=== PATIENT | male | born 1950 | race Hispanic/Latino ===

== ENCOUNTER 2018-08-11 10:50 | Emergency (ER) | payer MEDICARE, BC ==
[2018-08-11 11:55] LABS: #Eosinphils 0.1 thou/uL (0.0-0.7); #Neutrophils 5.4 thou/uL (1.40-6.50); %Basophils 0.3 % (0.0-1.0); %Eosinophils 1.5 % (0.0-10.0); %Lymphocytes 13.1 % (21.0-51.0); %Monocytes 12.9 % (0.0-10.0); %Neutrophils 72.3 % (42.0-75.0); Hemoglobin 11.6 g/dL (14.0-18.0); Mean Corpuscular HGB CONC 32.4 g/dL (32.0-36.0); Mean Platelet Volume 6.8 fL (7.4-10.4); Platelet Count 293 thou/uL (130-400); RBC Distribution Width 12.6 % (11.5-14.5); Red Blood Cell (RBC) Count 3.51 mill/uL (4.70-6.10); White Blood Cell (WBC) Count 7.5 thou/uL (4.8-10.8)
--- NOTE | 2018-08-11 11:56 | RAD ---
FChest 2 views: 08/11/2018 COMPARISON: 04/14/2016 HISTORY: Fever, headaches, body aches FINDINGS: There is a CT injectable left-sided Port-A-Cath, distal tip overlying the region of the cav oatrial junction. Midline sternotomy wires are present. Mild diffuse increased linear interstitial de nsity noted. There is elevation of the right hemidiaphragm. There is no pneumothorax or pleural fluid and no focal consolidation or alveolar edema. Mild increased linear density is noted on laterally im aging overlying the cardiac silhouette, which could represent mild infiltrate, volume loss, or scar w ithin the lingula and/or right middle lobe. No definitive correlate seen on the frontal exam. Impression: No focal consolidation or alveolar edema. Increased linear density overlies the cardiac s ilhouette anteriorly on the lateral examination as detailed above.
[2018-08-11 11:58] LABS: ALT (SGPT) 23 U/L (8-55); AST (SGOT) 18 U/L (5-34); Albumin 3.5 g/dL (3.4-4.8); Alkaline Phosphatase 119 U/L (40-150); Anion Gap 13 mmol/L (10-20); BUN (Urea Nitrogen) 10 mg/dL (8.4-25.7); Bilirubin, Total 0.5 mg/dL (0.2-1.2); Calc. Creatinine Clearance 0 mL/min (70-130); Calcium 8.8 mg/dL (7.8-10.44); Carbon Dioxide 26 mmol/L (23-31); Chloride 97 mmol/L (98-107); Estimated GFR-MDRD 65; Globulin 3.8 g/dL (2.4-3.5); Glucose 289 mg/dL (80-115); Potassium 3.4 mmol/L (3.5-5.1); Protein, Total 7.3 g/dL (5.8-8.1); Sodium 133 mmol/L (136-145)
[2018-08-11 13:11] LABS: Bilirubin Negative (Negative); Blood, Urine Negative (Negative); Clarity CLEAR (Clear); Glucose, Urine (Dipstick) >=1000 mg/dL (Negative); Leukocyte Negative (Negative); Nitrite Negative (Negative); Protein, Urine (Dipstick) Trace mg/dL (Neg-Trace); Specific Gravity, Urine 1.028 (1.002-1.036); pH, Urine 5.5 (5.0-9.0)
[2018-08-11] MEDS ORDERED: Acetaminophen 500 MG TAB ONE (13:50)
[2018-08-11] MEDS ORDERED: cefTRIAXone\\ROCEPHIN 2 GM VIAL ONE (15:40)
[2018-08-11] MEDS ORDERED: Ibuprofen 800 MG TAB ONE (15:49)
== END 2018-08-11 16:28 | disposition home or self-care (01) ==
LOC: ERS 10:50
DX: J20.9 Acute bronchitis, unspecified (principal); E78.5 Hyperlipidemia, unspecified; I10 Essential (primary) hypertension; I25.10 Atherosclerotic heart disease of native coronary artery without angina pectoris; F32.9 Major depressive disorder, single episode, unspecified; Z79.899 Other long term (current) drug therapy
CPT/HCPCS: 36415; 71046; 80053; 81003; 84484; 85025; 87086; 87804; 93005; 96361; 96365; J0696

== ENCOUNTER 2018-08-27 14:50 | Emergency (ER) | payer MEDICARE, BC ==
[~2018-08-27 14:50] MED LIST: ISOVUE-370 76%-LOCM 1 ML ONE
[2018-08-27 15:13] LABS: #Eosinphils 0.1 thou/uL (0.0-0.7); #Lymphocytes 1.1 thou/uL (1.20-3.40); #Monocytes 0.8 thou/uL (0.11-0.59); %Basophils 0.5 % (0.0-1.0); %Eosinophils 1.7 % (0.0-10.0); %Lymphocytes 13.5 % (21.0-51.0); %Monocytes 10.1 % (0.0-10.0); %Neutrophils 74.2 % (42.0-75.0); Hemoglobin 10.6 g/dL (14.0-18.0); Mean Corpuscular HGB CONC 31.7 g/dL (32.0-36.0); Mean Corpuscular Hemoglobin 32.3 pg (27.0-31.0); Mean Platelet Volume 6.4 fL (7.4-10.4); Platelet Count 316 thou/uL (130-400); RBC Distribution Width 13.4 % (11.5-14.5); Red Blood Cell (RBC) Count 3.27 mill/uL (4.70-6.10); White Blood Cell (WBC) Count 8.1 thou/uL (4.8-10.8)
[2018-08-27 15:41] LABS: ALT (SGPT) 25 U/L (8-55); AST (SGOT) 21 U/L (5-34); Albumin 3.6 g/dL (3.4-4.8); Alkaline Phosphatase 143 U/L (40-150); Anion Gap 13 mmol/L (10-20); BUN (Urea Nitrogen) 12 mg/dL (8.4-25.7); Bilirubin, Total 0.5 mg/dL (0.2-1.2); Calc. Creatinine Clearance 0 mL/min (70-130); Calcium 9.2 mg/dL (7.8-10.44); Carbon Dioxide 27 mmol/L (23-31); Chloride 97 mmol/L (98-107); Estimated GFR-MDRD 63; Glucose 349 mg/dL (80-115); Lipase 28 U/L (8-78); Potassium 4.1 mmol/L (3.5-5.1); Protein, Total 7.6 g/dL (5.8-8.1); Sodium 133 mmol/L (136-145)
[2018-08-27 16:58] LABS: Prothrombin Time 13.5 SEC (12.0-14.7)
[2018-08-27 16:59] LABS: PTT 32.3 SEC (22.9-36.1)
--- NOTE | 2018-08-27 17:42 | CT ---
CT of abdomen and pelvis: 08/27/2018 COMPARISON: None HISTORY: Abdominal pain for 3 weeks, history of gallbladder cancer TECHNIQUE: Axial CT imaging at 5 mm intervals from lung bases through pubic symphysis with IV contras t. Coronal reformatted imaging obtained. FINDINGS: There is a 1.1 cm nodule within the right lower lobe posteriorly on image 17. There is a sm all left pleural effusion with tiny left lower lobe pulmonary nodules measuring in the 3-4 mm range on axial image 1, 2, and 9. Midline sternotomy wires are present. The spleen, pancreas, and adrenal glands appear grossly unremarkable. The kidneys appear grossly unre markable. The provided history includes gallbladder cancer. It is uncertain whether or not this patient is status post cholecystectomy. There is a lobulated ill-defined hypodense lesion within the liver extending from the level of the liver dome anteriorly to the right of midline, inferiorly into the region of the gallbladder fossa, measuring at least 8.5 cm in craniocaudal dimension, 5.2 cm in AP dimension, and 4.7 cm in transverse dimension. There is gas within this abnormality along its inferior margin. Inseparable from this is an additional nonspecific hypodense abnormality centere d within the gallbladder fossa which contains lobulated soft tissue density and foci of air, best seen on image 29, measuring 3.5 x 3.5 cm. This may represent the gallbladder or could represent a flu id collection. It is inseparable from the proximal duodenum and may in fact invade the duodenum which could potentially explain the gas within this lesion and the adjacent liver lesion. Gas could a lso be on the basis of infection. There are soft tissue masses within the right paracardiac fat suspicious for metastatic lymph nodes, measuring up to 1.4 cm. There is an additional hypodense lesio n within the right lobe of the liver measuring 1.1 cm on image 27. There is nonspecific mild stranding of the fat within the pelvis, particularly posteriorly and to the left of midline. There are numerous sigmoid diverticula in the sigmoid colon is mildly thick-walled with pericolonic inflammatory stranding adjacent to the sigmoid colon, which may signify diverticulitis. The appendix is unremarkable and there is no evidence for bowel obstruction. There are multiple mesenteric masses seen anteriorly within the right mid abdomen, most conspicuous i nferior to the proximal aspect of the transverse colon, best seen on axial image 44, measuring up to 2.5 cm in transverse dimension, suggesting carcinomatosis. Scattered atherosclerotic calcification s of the abdominal aorta and its branches noted. Retroaortic left renal veins are noted. Enlarged nodes are seen within the annita hepatis, measuring up to 1.8 cm, likely metastatic in nature . Review of the osseous structures demonstrates no worrisome lytic or blastic bone lesion. IMPRESSION: Irregular air-containing hypodense liver lesion is inseparable from the gallbladder fossa . Irregular lesion with soft tissue lobulations, fluid, and air within the gallbladder fossa, most likely representing a gallbladder infiltrated with tumor. This is inseparable from and likely invades the adjacent duodenum. Air within the liver may be on the basis of extension from the duodenum and into the gallbladder. This could also be on the basis of gas-forming infection and the lesion within the liver could represent a metastatic focus and/or abscess. Findings concerning for metastatic disease include right paracardiac nodes, annita hepatis nodes, bila teral pulmonary nodules, and omental soft tissue nodules. Abnormal appearance of the sigmoid colon, which may be on the basis of malignancy or diverticulitis. Abril Kennedy made aware at 5:35 PM 08/27/2018.
[2018-08-27] MEDS ORDERED: HYDROcodone/Acetaminophen 10/325 mg Tablet ONE (20:40)
[2018-08-27] MEDS ORDERED: Pantoprazole 40 MG VIAL ONE (20:40)
[2018-08-27 20:47] LABS: Bilirubin Negative (Negative); Blood, Urine Negative (Negative); Clarity CLEAR (Clear); Glucose, Urine (Dipstick) 500 mg/dL (Negative); Leukocyte Negative (Negative); Nitrite Negative (Negative); Protein, Urine (Dipstick) Negative (Neg-Trace); pH, Urine 5.5 (5.0-9.0)
[2018-08-27 20:49] LABS: Specific Gravity, Urine 1.058 (1.002-1.036)
== END 2018-08-27 20:50 | disposition home or self-care (01) ==
LOC: ERS 14:50
DX: D37.6 Neoplasm of uncertain behavior of liver, gallbladder and bile ducts (principal); E78.5 Hyperlipidemia, unspecified; I10 Essential (primary) hypertension; I25.10 Atherosclerotic heart disease of native coronary artery without angina pectoris; F32.9 Major depressive disorder, single episode, unspecified; Z79.899 Other long term (current) drug therapy
CPT/HCPCS: 36415; 74177; 80053; 81003; 83690; 85025; 85610; 85730; 96374; C9113; Q9966

== ENCOUNTER 2018-09-20 14:31 | Emergency (ER) | payer MEDICARE, BC ==
[2018-09-20] MEDS ORDERED: Morphine 4 MG/ML VIAL ONE (15:17)
[2018-09-20] MEDS ORDERED: Ondansetron PF 4 MG/2 ML Vial ONE (15:17)
[2018-09-20 15:45] LABS: #Eosinphils 0.2 thou/uL (0.0-0.7); #Lymphocytes 0.8 thou/uL (1.20-3.40); #Monocytes 0.7 thou/uL (0.11-0.59); #Neutrophils 6.7 thou/uL (1.40-6.50); %Basophils 0.2 % (0.0-1.0); %Lymphocytes 9.5 % (21.0-51.0); %Monocytes 8.5 % (0.0-10.0); %Neutrophils 79.9 % (42.0-75.0); Hemoglobin 10.3 g/dL (14.0-18.0); Mean Corpuscular HGB CONC 32.4 g/dL (32.0-36.0); Mean Corpuscular Hemoglobin 32.6 pg (27.0-31.0); Mean Platelet Volume 7.4 fL (7.4-10.4); Platelet Count 210 thou/uL (130-400); RBC Distribution Width 14.7 % (11.5-14.5); Red Blood Cell (RBC) Count 3.17 mill/uL (4.70-6.10); White Blood Cell (WBC) Count 8.4 thou/uL (4.8-10.8)
[2018-09-20 16:06] LABS: Bilirubin Small (Negative); Blood, Urine Negative (Negative); Clarity CLEAR (Clear); Glucose, Urine (Dipstick) >=1000 mg/dL (Negative); Leukocyte Small (Negative); Protein, Urine (Dipstick) 30 mg/dL (Neg-Trace); Specific Gravity, Urine 1.028 (1.002-1.036); Urobilinogen 0.2 mg/dL (0.2-1.0)
[2018-09-20 16:08] LABS: Bacteria/HPF None Seen HPF (None Seen); Hyaline Casts/LPF 4-6 HYALINE CAST LPF (0-3 Hyaline); Pathc Cast-AUWi Flag 0.95 (0-2.49); RBC/HPF 0-3 HPF (0-3); Squamous Epithelial 0-3 HPF (0-3); WBC/HPF 0-3 HPF (0-3)
[2018-09-20 16:09] LABS: ALT (SGPT) 12 U/L (8-55); AST (SGOT) 17 U/L (5-34); Albumin 3.2 g/dL (3.4-4.8); Alkaline Phosphatase 167 U/L (40-150); Anion Gap 12 mmol/L (10-20); BUN (Urea Nitrogen) 8 mg/dL (8.4-25.7); Bilirubin, Total 0.3 mg/dL (0.2-1.2); Calc. Creatinine Clearance 0 mL/min (70-130); Calcium 8.1 mg/dL (7.8-10.44); Carbon Dioxide 28 mmol/L (23-31); Chloride 98 mmol/L (98-107); Estimated GFR-MDRD 72; Globulin 3.5 g/dL (2.4-3.5); Glucose 286 mg/dL (80-115); Lipase 19 U/L (8-78); Potassium 3.7 mmol/L (3.5-5.1); Protein, Total 6.7 g/dL (5.8-8.1); Sodium 134 mmol/L (136-145)
[2018-09-20 16:19] LABS: Nitrite Unable to Interpret (Negative)
[2018-09-20 16:20] LABS: Renal Epithelial None Seen HPF (0-3); Transitional Epithelial NONE SEEN HPF (0-3)
--- NOTE | 2018-09-21 10:34 | EKG ---
Test Reason : ER INDICATION Blood Pressure : / mmHG Vent. Rate : 098 BPM Atrial Rate : 098 BPM P-R Int : 148 ms QRS Dur : 078 ms QT Int : 392 ms P-R-T Axes : 002 -11 -20 degrees QTc Int : 500 ms Normal sinus rhythm Inferior infarct , age undetermined Abnormal ECG Confirmed by RACHID SANCHEZ ([id number]), subeditor GABRIEL STRICKLAND ([id number]) on 09/21/2018 10:34:15 AM Referred By: Confirmed By:RACHID SANCHEZ
== END 2018-09-20 16:53 | disposition home or self-care (01) ==
LOC: ERS 14:31
DX: R10.9 Unspecified abdominal pain (principal); G89.29 Other chronic pain; C22.8 Malignant neoplasm of liver, primary, unspecified as to type; I10 Essential (primary) hypertension; I25.10 Atherosclerotic heart disease of native coronary artery without angina pectoris; R73.03 Prediabetes; F32.9 Major depressive disorder, single episode, unspecified; E78.5 Hyperlipidemia, unspecified; Z79.891 Long term (current) use of opiate analgesic; Z79.899 Other long term (current) drug therapy
CPT/HCPCS: 80053; 81003; 81015; 83690; 85025; 93005; 96374; 96375; J2270; J2405

== ENCOUNTER 2018-10-09 21:13 | Inpatient (IN) | payer MEDICARE, BC ==
[2018-10-09 21:31] LABS: #Eosinphils 0.2 thou/uL (0.0-0.7); #Lymphocytes 1.4 thou/uL (1.20-3.40); #Monocytes 0.8 thou/uL (0.11-0.59); #Neutrophils 9.2 thou/uL (1.40-6.50); %Basophils 0.2 % (0.0-1.0); %Eosinophils 1.5 % (0.0-10.0); %Lymphocytes 11.9 % (21.0-51.0); %Monocytes 7.2 % (0.0-10.0); %Neutrophils 79.2 % (42.0-75.0); Hemoglobin 11.4 g/dL (14.0-18.0); Mean Corpuscular HGB CONC 32.4 g/dL (32.0-36.0); Mean Corpuscular Hemoglobin 32.4 pg (27.0-31.0); Mean Platelet Volume 7.3 fL (7.4-10.4); Platelet Count 274 thou/uL (130-400); RBC Distribution Width 15.1 % (11.5-14.5); Red Blood Cell (RBC) Count 3.51 mill/uL (4.70-6.10); White Blood Cell (WBC) Count 11.6 thou/uL (4.8-10.8)
--- NOTE | 2018-10-09 21:43 | RAD ---
EXAM: CHEST ONE VIEW HISTORY: Chest pain. Heart racing. COMPARISON: 08/11/2018 FINDINGS: A right internal jugular vein Mediport catheter remains in place and unchanged in position. Postsurgical changes related to CABG are again seen. There is opacification of approximately two thirds of the left hemithorax likely related to large le ft pleural effusion and associated atelectasis. Underlying mass cannot be excluded based on this exam. This does obscure the cardiac silhouette. The right lung is clear. The osseous structures are intact. Vascular calcifications are seen in the thoracic aorta. IMPRESSION: Interval development of a opacification of approximately two thirds of the left hemithorax likely due to moderately large left pleural effusion and atelectasis.
[2018-10-09 21:51] LABS: ALT (SGPT) 29 U/L (8-55); AST (SGOT) 27 U/L (5-34); Albumin 3.5 g/dL (3.4-4.8); Alkaline Phosphatase 417 U/L (40-150); Anion Gap 16 mmol/L (10-20); BUN (Urea Nitrogen) 9 mg/dL (8.4-25.7); Bilirubin, Total 0.6 mg/dL (0.2-1.2); CK (CPK) 36 U/L (30-200); Calc. Creatinine Clearance 0 mL/min (70-130); Calcium 9.1 mg/dL (7.8-10.44); Carbon Dioxide 25 mmol/L (23-31); Chloride 93 mmol/L (98-107); Estimated GFR-MDRD 73; Globulin 5.2 g/dL (2.4-3.5); Glucose 357 mg/dL (80-115); Potassium 3.6 mmol/L (3.5-5.1); Protein, Total 8.7 g/dL (5.8-8.1); Sodium 130 mmol/L (136-145)
[2018-10-09] MEDS ORDERED: Morphine 4 MG/ML VIAL ONE (22:17)
[2018-10-09] MEDS ORDERED: Piperacillin/Tazobactam 4.5 GM VIAL ONE (23:13)
--- NOTE | 2018-10-09 23:28 | CT ---
CT CHEST, ABDOMEN AND PELVIS WITH IV CONTRAST: 10/09/18 HISTORY: Patient with shortness of breath, left pleural effusion and right sided abdominal pain and tachycardi a. History of gallbladder cancer. COMPARISON: CT abdomen and pelvis on 08/27/18. CT THORAX: There has been interval increase in left pleural effusion with previously seen very small left pleura l effusion. Now there is a moderately large left pleural effusion with consolidation present on the l eft which may be related to passive atelectasis versus pneumonia. There has been interval development of a right pleural effusion. There are noncalcified pulmonary nodules seen at the right lung base, majority measuring less than 1 cm with largest pulmonary nodule measuring 1.3 cm and this was previously noted to be in a subpleural location on the prior study measuring 1.1 cm. There is mild increased interstitial prominence bilaterally. This may be related to an element of mil d pulmonary edema. A left internal jugular vein Mediport catheter is noted in place. Vascular calcifi cations are seen in the thoracic aorta. There are several hypodense and heterogeneous nodules in a e picardial location, with largest nodule on the prior study measuring 14 mm, which is stable in size b ut has a more heterogeneous appearance. Several additional epicardial nodules are seen bilaterally. T here is a more laterally located heterogeneous lobulated nodule seen which is anterior to the right h epatic lobe but is anterior to the level of the hemidiaphragm and measures 2.4 cm. There were only a few tiny nodules in this region on the prior exam. As noted on the prior exam, there is a lobulated hypodense lesion within the liver extending from the level of the liver dome inferiorly and to the region of the gallbladder fossa, and this large hypode nse collection does contain gas. This collection on today's examination measures approximately 9.8 cm craniocaudal x 8.1 cm transverse by 6.9 cm AP with previous measurements of 8.5 cm x 4.8 cm x 5.2 cm in similar dimensions. The collection in the region of the gallbladder fossa is overall similar in s ize and appearance to the prior study and again contains gas. Again noted is thickening involving the region of the antrum and pylorus of the stomach as well as t he first and second portions of the duodenum. Degree of thickening has increased from prior study, an d the thickened duodenum is inseparable from the lobulated hypodense collection in the liver and [place] ection in the gallbladder fossa. Adjacent to the gallbladder fossa, there is a soft tissue mass whic h is also immediately adjacent to the proximal duodenum measuring 3.7 cm. Findings could be related t o neoplastic process which invades the duodenum. As mentioned on the prior examination, the fluid an d gas collection in the gallbladder fossa could represent neoplastic involvement of the gallbladder o r possibly a fluid and gas collection. Given close proximity to the duodenum, invasion of the duodenu m secondary to neoplasm could be the etiology for gas within the regions of the hepatic collection an d collection in the gallbladder fossa all of which are again inseparable from one another. Findings c ould be related to hepatic abscess or necrotic neoplastic process. There are multiple subcentimeter hypodense lesions scattered throughout each lobe of the liver which do not demonstrate findings compatible with cysts and may represent metastatic lesions. There is mild periportal edema seen involving the left hepatic lobe. There has been interval development of low density areas within the anterior and anterolateral aspec t of the central body and inferior pole of the spleen, likely related to areas of infarction. There are several small prominent lymph nodes in the region of the gastrohepatic ligament with a bilo bed heterogeneous lymph node in the region of the annita hepatis measuring 3 cm x 1.4 cm. There has be en interval enlargement of a lymph node just posterior to the level of the splenic vein which measure s 1.1 cm in short axis dimension. Smaller but increased number of lymph nodes are also seen within th e right upper quadrant, likely metastatic in etiology. The pancreas, bilateral adrenal glands, kidneys, and urinary bladder have a normal CT appearance. Postsurgical changes in loops of bowel in the upper abdomen are again seen. There is a lobulated heterogeneous mass seen just inferior to the transverse colon which was also see n on the prior study. However, this appears to represent a conglomeration of previously seen nodule w hich were present on the prior exam with largest dimension on the current study of 3.2 cm. Just infe rior to this region is an area of fat density with circumscribed increased density margins. This area could essentially be related to an area of fat necrosis. However, findings are worrisome for periton eal carcinomatosis. Again noted is the areas of soft tissue density and stranding adjacent to the sig moid colon. No other interval change. IMPRESSION: 1. Irregular gas containing hypodense hepatic lesion extending from dome of liver to the region of the gallbladder fossa with an adjacent area of soft tissue density which abuts the large gas and h ypodense collection in the liver. Given patient's clinical history, findings could be related to a ne oplastic process with extension of 3necrotic mass into the liver. However, the hypodense collections which contain gas are inseparable from the duodenum with area of soft tissue density seen in the grant on of the duodenum as well. Gas within these collections could be secondary to neoplasm invading the duodenum or secondary to abscess collection. 2. Increase in degree of thickening involving the duodenum as well as region of the pylorus of t he stomach when compared to the prior exam. 3. Metastatic disease with pulmonary nodules in the right lung base and multiple epicardial hete rogeneous nodules as well as findings likely related to peritoneal carcinomatosis within the abdomen and pelvis in addition to enlarged lymph nodes within the upper abdomen as well as multiple subcentim eter hypodense lesions throughout each lobe of the liver, likely related to metastatic lesions. 4. Interval development of infarction involving portion of the spleen. 5. Large left pleural effusion with consolidation on the left probably related to passive atele ctasis; although, pneumonia cannot be excluded. 6. Interval development of small right pleural effusion. 7. Remainder of the findings are as described above. 8. Above findings discussed with Dr. Ramos in the Emergency Department, 10/09/18 at 2303 hours. POS: [facility]
[2018-10-10] MEDS ORDERED: Ondansetron ODT 4 MG TAB SL PRN (01:16)
[2018-10-10] MEDS ORDERED: Acetaminophen 325 MG TAB PO PRN (01:16)
[2018-10-10] MEDS ORDERED: Ondansetron PF 4 MG/2 ML Vial IVP PRN (01:16)
[2018-10-10 01:21] VITALS: BMI 25.6
[2018-10-10] MEDS ORDERED: Nitroglycerin 0.4 MG TAB (25 Tab Bottle) SL PRN (03:36)
[2018-10-10] MEDS ORDERED: Dextrose 50% Abboject 50 ML SYRINGE SLOW IVP PRN (03:36)
[2018-10-10] MEDS ORDERED: Dextrose 5% in Water 1,000 ML IV PRN (03:36)
[2018-10-10] MEDS: Levothyroxine Sodium 112 MCG TAB PO SCH (04:50)
[2018-10-10] MEDS: Levothyroxine Sodium 25 MCG TAB PO SCH (04:50)
[2018-10-10] MEDS ORDERED: Sodium Chloride 0.65% Nasal 44 ML BOT EA NARE PRN (07:30)
[2018-10-10] MEDS ORDERED: hydrALAZINE 20 MG/ML VIAL SLOW IVP PRN (07:30)
[2018-10-10] MEDS ORDERED: Artificial Tears 18 DROP/0.9 ML EA EYE PRN (07:30)
[2018-10-10] MEDS ORDERED: Cepastat Lozenges 1 LOZ PO PRN (07:30)
[2018-10-10] MEDS ORDERED: Bisacodyl 5 MG TAB PO PRN (07:30)
[2018-10-10] MEDS ORDERED: Loratadine 10 MG TAB PO PRN (07:30)
[2018-10-10] MEDS ORDERED: Diabetic Tussin 200 MG/10 ML UDCUP PO PRN (07:30)
[2018-10-10] MEDS ORDERED: Zolpidem Tartrate 5 MG TAB PO PRN (07:30)
[2018-10-10] MEDS ORDERED: Loperamide HCl 2 MG CAP PO PRN (07:30)
[2018-10-10] MEDS ORDERED: Senokot S 8.6-50 MG TAB PO PRN (07:30)
[2018-10-10] MEDS: HumaLOG 300 UNITS/3 ML VIAL SC PRN ×3 (08:28→18:24)
[2018-10-10] MEDS: Rosuvastatin 20 MG TAB PO SCH (08:29)
[2018-10-10] MEDS: Multivit, Therapeutic 1 TAB PO SCH (08:29)
[2018-10-10] MEDS ORDERED: Prevnar 13-Val Conj/PF 0.5 ML SYRINGE IM ONE (09:00)
--- NOTE | 2018-10-10 11:35 | CON ---
DATE OF CONSULTATION: HISTORY OF PRESENT ILLNESS: Lexa Vee is a 68-year-old gentleman, who was admitted to the hospital with chest pain, shortness of breath, abdominal pain. He presented to the ER. He was tachycardic, tachypneic, sats are 94% on room air, pulse 114, temperature 99, respiratory rate 20. A CT of his chest and abdomen is outlined and shows extensive metastatic cancer as well as large left-sided pleural effusion, this was ordered a couple of months ago, which was otherwise normal. No fluid was seen. Nonsmoker. Nondrinker. PAST MEDICAL HISTORY: 1. Hypertension. 2. Diabetes. 3. Gallbladder cancer, status post surgery. He has been going to [place], where he received chemotherapy. It is unclear whether he sees a local oncologist. PAST SURGICAL HISTORY: 1. Cholecystectomy. 2. Coronary artery bypass graft surgery. HOME MEDICATIONS: 1. Januvia 100. 2. Crestor 20. 3. Omeprazole 40. 4. Nitroglycerin. 5. Synthroid 137. 6. Tylenol. 7. Pioglitazone 30 mg a day. SOCIAL HISTORY: Landscape per annum. REVIEW OF SYSTEMS: Ten-point negative. PHYSICAL EXAMINATION: VITAL SIGNS: Sats are 98% on room air, respiratory rate 20, temperature 98, pulse 103, blood pressure 102/56. CHEST: Decreased breath sounds in right lung. Left lung unremarkable. CARDIAC: Sinus tach. ABDOMEN: Distended and soft. LABORATORY DATA: His alkaline phosphatase 417. Glucose 283. White count 11,000. His chemistry profile shows sodium of 130. Lytes are normal. His CT abdomen shows multiple abnormalities that are outlined, multiple hepatic masses, metastatic lung nodules, large left pleural effusion, small right pleural effusion. IMPRESSION: 1. Status post CABG in 2012. 2. Metastatic apparently gallbladder cancer. 3. Large pleural effusion. 4. Diabetes. 5. Hypertension. PLAN: Therapeutic thoracentesis has been performed today. Otherwise, comfort care. TIME SPENT: Consultation note, 70 minutes, 50% in direct patient care. Job ID: [id number]
--- NOTE | 2018-10-10 11:40 | PDOC.PN ---
- Subjective Encounter Start Date: 10/10/18 Encounter Start Time: 08:15 -: old records requested/rev pt has dyspnea, vague upper abdominal discomfort - Objective Resuscitation Status - Order Detail: 10/10/18 03:38 Resuscitation Status Routine Resuscitation Status: DNAR: NO Resuscitation Discussed with: patient and at bedside MAR Reviewed: Yes Vital Signs & Weight: Vital Signs (12 hours) Temp Pulse Resp BP BP Pulse Ox 10/10/18 07:20 98.7 F 103 H 20 109/56 L 94 L 10/10/18 03:39 99.8 F H 104 H 18 127/69 93 L 10/10/18 01:10 98.4 F 112 H 18 118/64 96 Weight Weight 178 lb 12.8 oz I&O: 10/09/18 10/10/18 10/11/18 06:59 06:59 06:59 Intake Total 50 Output Total 100 Balance -50 Result Diagrams: 10/09/18 21:20 10/09/18 21:20 Additional Labs: Accuchecks 10/10/18 10/10/18 10:44 05:31 POC Glucose 358 H 283 H Radiology Reviewed by me: Yes (CT abdomen noted) EKG Reviewed by me: Yes (NSR) Phys Exam - Physical Examination Constitutional: NAD HEENT: PERRLA, moist MMs, sclera anicteric Neck: no JVD, supple Respiratory: no wheezing, no rhonchi air entry reduced on left side Cardiovascular: RRR, no significant murmur, no rub Gastrointestinal: soft, no distention, positive bowel sounds upper abdominal discomfort Musculoskeletal: no edema, pulses present Neurological: non-focal, normal sensation, moves all 4 limbs Lymphatic: no nodes Psychiatric: normal affect, A&O x 3 Skin: no rash, normal turgor Dx/Plan (1) Pleural effusion, left Code(s): J90 - PLEURAL EFFUSION, NOT ELSEWHERE CLASSIFIED Status: Acute (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 - INTRAHEPATIC BILE DUCT CARCINOMA Status: Acute Comment: with metastasis to lung, liver, lymph node and duodenam involvement, pt is following [facility] and he has been on chemotherapy trial (3) Hyponatremia Code(s): E87.1 - HYPO-OSMOLALITY AND HYPONATREMIA Status: Acute (4) Splenic infarction Code(s): D73.5 - INFARCTION OF SPLEEN Status: Acute (5) CAD (coronary artery disease) Code(s): I25.10 - ATHSCL HEART DISEASE OF [place] CORONARY ARTERY W/O ANG PCTRS Status: Chronic Comment: with h/o cabg (6) Diabetes type 2, controlled Code(s): E11.9 - TYPE 2 DIABETES MELLITUS WITHOUT COMPLICATIONS Status: Chronic (7) Dyslipidemia Code(s): E78.5 - HYPERLIPIDEMIA, UNSPECIFIED Status: Chronic (8) GERD (gastroesophageal reflux disease) Code(s): K21.9 - GASTRO-ESOPHAGEAL REFLUX DISEASE WITHOUT ESOPHAGITIS Status: Chronic (9) Hypothyroidism Code(s): E03.9 - HYPOTHYROIDISM, UNSPECIFIED Status: Chronic (10) Macrocytic anemia Code(s): D53.9 - NUTRITIONAL ANEMIA, UNSPECIFIED Status: Chronic - Plan cont current plan of care * Pulmonary has been consulted, he will need palliative thoracentesis * medication reviewed as below * symptomatic treatment * home medication reconciled * palliative care consulted * prognosis poor. Review of Systems - Review of Systems Constitutional: negative: fever, chills, sweats, weakness, malaise, other Respiratory: Shortness of Breath, SOB with Excertion. negative: Cough, Dry, Hemoptysis, Pleuritic Pain, Sputum, Wheezing Cardiovascular: negative: chest pain, palpitations, orthopnea, paroxysmal nocturnal dyspnea, edema, light headedness, other Gastrointestinal: Abdominal Pain. negative: Nausea, Vomiting, Diarrhea, Constipation, Melena, Hematochezia, Other Genitourinary: negative: Dysuria, Frequency, Incontinence, Hematuria, Retention , Other Musculoskeletal: negative: Neck Pain, Shoulder Pain, Arm Pain, Back Pain, Hand Pain, Leg Pain, Foot Pain, Other Skin: negative: Rash, Lesions, Bryan, Bruising, Other - Medications/Allergies Allergies/Adverse Reactions: Allergies Allergy/AdvReac Type Severity Reaction Status Date / Time metformin Allergy Verified 10/10/18 01:18 Medications: Current Medications Acetaminophen (Tylenol) 650 mg PO Q4H PRN PRN Reason: Headache/Fever or Pain Stop: 10/14/18 11:15 Acetaminophen/Codeine Phosphate (Tylenol #3) 1 tab PO Q6H PRN PRN Reason: Pain Artificial Tears (Tears Naturale) 2 drop EA EYE PRN PRN PRN Reason: Dry Eyes Bisacodyl (Dulcolax) 10 mg PO DAILYPRN PRN PRN Reason: Constipation Dextrose/Water (Dextrose 50%) 25 gm SLOW IVP PRN PRN PRN Reason: Hypoglycemia Glucagon (Glucagon) 1 mg IM PRN PRN PRN Reason: Hypoglycemia Guaifenesin (Robitussin Sf) 200 mg PO Q4H PRN PRN Reason: Cough Heparin Sodium (Porcine) (Heparin Lock Flush 100 Units/Ml) 1,000 units IVF 1030 [facility] Stop: 10/10/18 12:00 Hydralazine HCl (Apresoline) 10 mg SLOW IVP Q4H PRN PRN Reason: SBP > 180 and HR < 70 Dextrose/Water (D5w) 1,000 mls @ 0 mls/hr IV .Q0M PRN PRN Reason: Hypoglycemia Insulin Human Lispro (Humalog) 0 units SC .MILD SLIDING SCALE PRN PRN Reason: Mild Correctional Scale Last Admin: 10/10/18 11:27 Dose: 6 units Levothyroxine Sodium (Synthroid) 112 mcg PO 0600 [facility] Last Admin: 10/10/18 04:50 Dose: 112 mcg Levothyroxine Sodium (Synthroid) 25 mcg PO 0600 [facility] Last Admin: 10/10/18 04:50 Dose: 25 mcg Loperamide HCl (Imodium) 2 mg PO PRN PRN PRN Reason: Diarrhea/Loose Stools Loratadine (Claritin) 10 mg PO DAILYPRN PRN PRN Reason: Sinus Symptoms Multivitamins (Theragran) 1 tab PO DAILY [facility] Last Admin: 10/10/18 08:29 Dose: 1 tab Nitroglycerin (Nitrostat) 0.4 mg SL Q5MIN PRN PRN Reason: .CHEST PAIN Ondansetron HCl (Zofran) 4 mg IVP Q6H PRN PRN Reason: Nausea/Vomiting Stop: 10/15/18 11:15 Ondansetron HCl (Zofran Odt) 4 mg SL Q6H PRN PRN Reason: Nausea/Vomiting Stop: 10/14/18 11:15 Pantoprazole Sodium (Protonix) 40 mg PO BID [facility] Last Admin: 10/10/18 08:29 Dose: 40 mg Rosuvastatin Calcium (Crestor) 20 mg PO DAILY [facility] Last Admin: 10/10/18 08:29 Dose: 20 mg Senna/Docusate Sodium (Senokot S) 2 tab PO BID PRN PRN Reason: Constipation Sodium Chloride ([place] Nasal [place] 0.65%) 0 ml EA NARE QIDPRN PRN PRN Reason: Nasal Congestion Throat Lozenges (Cepastat Lozenges) 1 [place] PO Q2H PRN PRN Reason: Sore Throat Zolpidem Tartrate (Ambien) 5 mg PO HSPRN PRN PRN Reason: Insomnia
--- NOTE | 2018-10-10 11:43 | OP ---
DATE OF PROCEDURE: 10/10/2018 PROCEDURE PERFORMED: Thoracentesis. INDICATION: Pleural effusion. DESCRIPTION OF PROCEDURE: After informed consent, the left posterior thorax was cleaned with chlorhexidine. 1% lidocaine was infiltrated into the left 9th intercostal space to pleural line. The pleural cavity was entered in and initially about 30 mL of turbid yellow fluid was removed. Thereafter, using an 8-[place] catheter, a total of 1600 mL fluid was removed without difficulty. Pleural effusion was sent for appropriate studies including cytology and culture. Job ID: [id number] [facility]
[2018-10-10 12:17] LABS: Fluid, Triglycerides 54 mg/dL (Not Available); Pleural Fluid, Amylase Less than 30 U/L (Not Available); Pleural Fluid, Glucose 284 mg/dL; Pleural Fluid, LDH 262 U/L (Not Available); Pleural Fluid, Protein 5.2 g/dL
--- NOTE | 2018-10-10 12:49 | HP ---
PRIMARY CARE PHYSICIAN: Dr. Saurav Diego. CODE STATUS: Patient is DNR/DNI. TIME OF EVALUATION: 1:00 a.m. CHIEF COMPLAINT: Shortness of breath. HISTORY OF PRESENT ILLNESS: This is a 68-year-old male patient with past medical history of cancer of the gallbladder. The patient came to the hospital after having severe shortness of breath with no clear triggers. No alleviating factors. Symptoms have been present for the past few weeks and has been gradually getting worse. Yesterday, he reported that he could not handle anymore and for that reason, came to the hospital. Symptoms were very severe, of note the patient has received treatment in [facility] for metastatic cancer and multiple abdominal surgeries for the same reason. REVIEW OF SYSTEMS: CONSTITUTIONAL: No fever, chills. The patient does have generalized weakness. RESPIRATORY: The patient has no cough. The patient has no sputum production. The patient has significant shortness of breath. CARDIOVASCULAR: No chest pain, palpitation. GASTROINTESTINAL: No nausea, no vomiting, no diarrhea. The patient does have abdominal pain. 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 Genitourinary: No burning on urination. EXTREMITIES: No leg swelling. All other systems were reviewed and negative except for the findings mentioned above. PAST MEDICAL HISTORY: Positive for hyperlipidemia, hypertension, diabetes, CAD, cancer of the gallbladder. PAST SURGICAL HISTORY: CABG x3. Head surgery above 40 years ago. PSYCHIATRIC HISTORY: Depression. FAMILY HISTORY: Reviewed, noncontributory to current presentation. SOCIAL HISTORY: No drugs. No smoking history. No alcohol. KNOWN ALLERGIES: No known drug allergies. REPORTED MEDICATIONS: 1. Aggrenox. 2. Metoprolol. 3. Azithromycin. 4. Tylenol. 5. Omeprazole. 6. B complex plus vitamin C. 7. Levothyroxine. 8. Magnesium oxide. 9. Nitroglycerin. 10. Januvia. 11. Pioglitazone. PHYSIAL EXAMINATION: VITAL SIGNS: On presentation, blood pressure 148/79 with heart rate of 114, respiratory rate was 20, temperature 99.4 with pain 8/10, oxygen saturation was 94% on room air. GENERAL APPEARANCE: The patient is alert, oriented, not in acute distress. HEAD AND EYES: Normal conjunctivae. Moist oral mucosa. Anicteric. No JVD. RESPIRATORY: Bilateral air entry, except for the left lower lobe. The patient has very diminished air sounds. No wheezing. No rales. Left-sided has difficulty expanding. CARDIOVASCULAR: Normal rate, regular rhythm. No murmurs. No gallop. No edema. ABDOMEN: Soft, normal bowel sounds. MUSCULOSKELETAL: Baseline range of motion and strength. No tenderness. SKIN : Warm, intact. No pallor. No rash. No redness. Peripheral pulses are present. Capillary refill seems to be intact. NEUROLOGIC: No evidence of any new focal weakness. Baseline speech. Cranial nerves seems to be intact. PSYCHIATRIC: The patient is in good mood. No anxiety. Optimal judgment. IMAGING: EKG was reviewed, shows sinus tachycardia at the rate of 111. No other significant acute findings. Abdomen and pelvis CT scan was reviewed. The patient has a new large left-sided pleural effusion, increase in size of the gallbladder with carcinoid tumor, new liver METS and peritoneal METS. LABORATORY DATA: Labs were done were reviewed. The patient has a white count of 11.6, MCV 100, platelet count 274. Chemistry: Sodium 130, potassium 3.6, chloride 93, carbon dioxide 25, anion gap 16, BUN 9, creatinine 1.01, GFR 73, glucose 357 , lactic acid 1.9, total bilirubin 0.6, AST 27, ALT 29, alkaline phosphatase 417. Troponin 0.010. ASSESSMENT AND PLAN: The patient will be placed in the hospital with following medical problems: 1. Metastatic gallbladder cancer. The patient has received treatment using [facility]. It is a known problem with very poor long-term prognosis. The patient also has been seen by Dr. Artis in the past and has discussed with him some possibility for surgery. There is no clear picture of what the plan could be, so consulting Dr. Artis will be beneficial for the patient' s treatment to make a decision regarding possibility for surgery or not. The patient is due for another chemotherapy in the next coming weeks at [facility]. 2. Left-sided pleural effusion, that is enlarged. We have consulted Pulmonary to see if they have any recommendation for the pleural effusion that seems to be malignant in etiology. 3. Uncontrolled diabetes. The patient has blood sugar of 357. We will place the patient on sliding scale, low carb diet is recommended. 4. Hyponatremia. Sodium 130, it is mild. We will monitor sodium, we will replace as needed. 5. Hypertension. The patient presented with systolic blood pressure of 148, reconcile home medications, we will treat accordingly. 6. Deep venous thrombosis prophylaxis. Job ID: [id number] [facility]
[2018-10-10 13:41] LABS: BF Color Yellow; BF RBC Count - Manual 1318 /cumm; BF WBC/Nonhematics Ct. - Manua 1995 /cumm; Body Fluid Source Thoracentesis Fluid; Clarity Hazy (Clear); Tube # EDTA
--- NOTE | 2018-10-10 13:50 | RAD ---
SINGLE VIEW CHEST: Date: 10/10/18 COMPARISON: 10/09/18. HISTORY: Status post thoracentesis. FINDINGS: Single view of the chest shows a cardiomediastinal silhouette which is upper limits of normal in size . The MediPort is unchanged in position. The patient is status post sternotomy. There is a small left pleural effusion. No pneumothorax is seen. The pleural effusion has decreased in size compared to th e prior radiograph. IMPRESSION: Decreased size of the left pleural effusion without evidence of pneumothorax. POS: [facility]
[2018-10-10 14:02] LABS: BF Segmented Neutrophils 1 %; Cell Count Non Hematic 51 %; Lymphocytes 48 %
[2018-10-10] MEDS: Acetaminophen/Codeine 30-300mg Tablet PO PRN (20:22)
[2018-10-10] MEDS ORDERED: HumaLOG 300 UNITS/3 ML VIAL SC PRN (20:33)
[2018-10-10] MEDS ORDERED: Alogliptin 25 MG TAB PO SCH (20:45)
[2018-10-11] MEDS: Levothyroxine Sodium 112 MCG TAB PO SCH (05:09)
[2018-10-11] MEDS: Levothyroxine Sodium 25 MCG TAB PO SCH (05:09)
[2018-10-11 06:18] LABS: #Eosinphils 0.3 thou/uL (0.0-0.7); #Lymphocytes 1.2 thou/uL (1.20-3.40); #Monocytes 0.8 thou/uL (0.11-0.59); #Neutrophils 7.6 thou/uL (1.40-6.50); %Basophils 0.2 % (0.0-1.0); %Eosinophils 3.1 % (0.0-10.0); %Neutrophils 76.7 % (42.0-75.0); Hemoglobin 10.2 g/dL (14.0-18.0); Mean Corpuscular HGB CONC 32.6 g/dL (32.0-36.0); Mean Corpuscular Hemoglobin 32.9 pg (27.0-31.0); Mean Platelet Volume 7.5 fL (7.4-10.4); Platelet Count 214 thou/uL (130-400); RBC Distribution Width 14.9 % (11.5-14.5); Red Blood Cell (RBC) Count 3.09 mill/uL (4.70-6.10); White Blood Cell (WBC) Count 9.9 thou/uL (4.8-10.8)
[2018-10-11 06:32] LABS: ALT (SGPT) 28 U/L (8-55); AST (SGOT) 31 U/L (5-34); Albumin 2.7 g/dL (3.4-4.8); Alkaline Phosphatase 329 U/L (40-150); Anion Gap 11 mmol/L (10-20); BUN (Urea Nitrogen) 10 mg/dL (8.4-25.7); Bilirubin, Total 0.5 mg/dL (0.2-1.2); Calc. Creatinine Clearance 118 mL/min (70-130); Calcium 8.3 mg/dL (7.8-10.44); Carbon Dioxide 27 mmol/L (23-31); Chloride 97 mmol/L (98-107); Estimated GFR-MDRD Greater than 90; Globulin 3.9 g/dL (2.4-3.5); Glucose 256 mg/dL (80-115); Potassium 3.7 mmol/L (3.5-5.1); Protein, Total 6.6 g/dL (5.8-8.1); Sodium 131 mmol/L (136-145)
--- NOTE | 2018-10-11 09:42 | PRG ---
DATE OF SERVICE: 10/11/2018 SUBJECTIVE: This morning, he is better, he is less short of breath. His pleural effusion was an exudate, awaiting cytology. OBJECTIVE: VITAL SIGNS: Temperature 99, pulse 98, respiratory rate 18, sats 90% on room air, blood pressure 116/61. CHEST: Decreased breath sounds without any wheezing. CARDIAC: Normal S1, S2. No gallops. ABDOMEN: Soft. LABORATORY DATA: Labs unremarkable. Sodium 131. White count 9000. IMPRESSION: 1. Metastatic gallbladder cancer, being followed at [facility] in [facility] for chemotherapy. 2. Large pleural effusion. PLAN: Disposition home any time. Follow up with his oncologist. If his effusion comes back rapidly, suggest inserting a pleural catheter. Job ID: [id number]
[2018-10-11] MEDS: Pioglitazone HCl 15 MG TAB PO SCH (09:51)
[2018-10-11] MEDS: Multivit, Therapeutic 1 TAB PO SCH (09:52)
[2018-10-11] MEDS: Rosuvastatin 20 MG TAB PO SCH (09:52)
[2018-10-11] MEDS: Alogliptin 25 MG TAB PO SCH (09:52)
[2018-10-11] MEDS: Acetaminophen/Codeine 30-300mg Tablet PO PRN ×2 (09:55→16:03)
--- NOTE | 2018-10-11 10:58 | PDOC.PN ---
- Subjective Encounter Start Date: 10/11/18 Encounter Start Time: 07:30 -: old records requested/rev Patient seen and examined. No overnight events today he feels weak, nausea, no dyspnea - Objective Resuscitation Status - Order Detail: 10/10/18 03:38 Resuscitation Status Routine Resuscitation Status: DNAR: NO Resuscitation Discussed with: patient and at bedside MAR Reviewed: Yes Vital Signs & Weight: Vital Signs (12 hours) Temp Pulse Resp BP Pulse Ox 10/11/18 07:26 99.0 F 98 18 116/61 93 L 10/11/18 04:00 98.2 F 108 H 16 106/62 94 L 10/10/18 23:00 98.9 F 104 H 26 H 105/58 L 92 L Weight Admit Weight 178 lb 12.8 oz Weight 178 lb 12.8 oz I&O: 10/10/18 10/11/18 10/12/18 06:59 06:59 06:59 Intake Total 50 50 Output Total 100 350 Balance -50 -300 Result Diagrams: 10/11/18 05:36 10/11/18 05:36 Additional Labs: Accuchecks 10/11/18 10/10/18 10/10/18 05:10 20:27 17:26 POC Glucose 245 H 360 H 274 H 10/10/18 10:44 POC Glucose 358 H EKG Reviewed by me: Yes (nsr) Phys Exam - Physical Examination Constitutional: NAD HEENT: PERRLA, moist MMs, sclera anicteric Neck: no JVD, supple Respiratory: no wheezing, no rhonchi air entry improved left side Cardiovascular: RRR, no significant murmur, no rub Gastrointestinal: soft, no distention, positive bowel sounds vague upper abdominal discomfort Musculoskeletal: no edema, pulses present Neurological: non-focal, normal sensation, moves all 4 limbs Lymphatic: no nodes Psychiatric: normal affect, A&O x 3 Skin: no rash, normal turgor Dx/Plan (1) Pleural effusion, left Code(s): J90 - PLEURAL EFFUSION, NOT ELSEWHERE CLASSIFIED Status: Acute (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 - INTRAHEPATIC BILE DUCT CARCINOMA Status: Acute Comment: with metastasis to lung, liver, lymph node and duodenam involvement, pt is following [facility] and he has been on chemotherapy trial (3) Hyponatremia Code(s): E87.1 - HYPO-OSMOLALITY AND HYPONATREMIA Status: Acute (4) Splenic infarction Code(s): D73.5 - INFARCTION OF SPLEEN Status: Acute (5) CAD (coronary artery disease) Code(s): I25.10 - ATHSCL HEART DISEASE OF [place] CORONARY ARTERY W/O ANG PCTRS Status: Chronic Comment: with h/o cabg (6) Diabetes type 2, controlled Code(s): E11.9 - TYPE 2 DIABETES MELLITUS WITHOUT COMPLICATIONS Status: Chronic (7) Dyslipidemia Code(s): E78.5 - HYPERLIPIDEMIA, UNSPECIFIED Status: Chronic (8) GERD (gastroesophageal reflux disease) Code(s): K21.9 - GASTRO-ESOPHAGEAL REFLUX DISEASE WITHOUT ESOPHAGITIS Status: Chronic (9) Hypothyroidism Code(s): E03.9 - HYPOTHYROIDISM, UNSPECIFIED Status: Chronic (10) Macrocytic anemia Code(s): D53.9 - NUTRITIONAL ANEMIA, UNSPECIFIED Status: Chronic - Plan cont current plan of care, plan discussed w/ family * DC tele * transfer to medical * medication reviewed as below * symptomatic treatment * discussed with * oncology opinion pending * possible DC tomorrow. * add humilin insulin 70/30 110 unit sc ac * aggressive sliding scale Review of Systems - Review of Systems Constitutional: weakness, malaise. negative: fever, chills, sweats, other Respiratory: negative: Cough, Dry, Shortness of Breath, Hemoptysis, SOB with Excertion, Pleuritic Pain, Sputum, Wheezing Cardiovascular: chest pain. negative: palpitations, orthopnea, paroxysmal nocturnal dyspnea, edema, light headedness, other Gastrointestinal: Nausea. negative: Vomiting, Abdominal Pain, Diarrhea, Constipation, Melena, Hematochezia, Other Genitourinary: negative: Dysuria, Frequency, Incontinence, Hematuria, Retention , Other Musculoskeletal: negative: Neck Pain, Shoulder Pain, Arm Pain, Back Pain, Hand Pain, Leg Pain, Foot Pain, Other Skin: negative: Rash, Lesions, Bryan, Bruising, Other - Medications/Allergies Allergies/Adverse Reactions: Allergies Allergy/AdvReac Type Severity Reaction Status Date / Time metformin Allergy Verified 10/10/18 01:18 Medications: Current Medications Acetaminophen (Tylenol) 650 mg PO Q4H PRN PRN Reason: Headache/Fever or Pain Stop: 10/14/18 11:15 Acetaminophen/Codeine Phosphate (Tylenol #3) 1 tab PO Q6H PRN PRN Reason: Pain Last Admin: 10/11/18 09:55 Dose: 1 tab Alogliptin Benzoate (Alogliptin) 25 mg PO DAILY [facility] Last Admin: 10/11/18 09:52 Dose: 25 mg Artificial Tears (Tears Naturale) 2 drop EA EYE PRN PRN PRN Reason: Dry Eyes Bisacodyl (Dulcolax) 10 mg PO DAILYPRN PRN PRN Reason: Constipation Dextrose/Water (Dextrose 50%) 25 gm SLOW IVP PRN PRN PRN Reason: Hypoglycemia Glucagon (Glucagon) 1 mg IM PRN PRN PRN Reason: Hypoglycemia Guaifenesin (Robitussin Sf) 200 mg PO Q4H PRN PRN Reason: Cough Hydralazine HCl (Apresoline) 10 mg SLOW IVP Q4H PRN PRN Reason: SBP > 180 and HR < 70 Dextrose/Water (D5w) 1,000 mls @ 0 mls/hr IV .Q0M PRN PRN Reason: Hypoglycemia Insulin Human Lispro (Humalog) 0 units SC .MILD SLIDING SCALE PRN PRN Reason: Mild Correctional Scale Last Admin: 10/10/18 18:24 Dose: 4 units Insulin Human Lispro (Humalog) 0 units SC .BEDTIME SLIDING SC PRN PRN Reason: Bedtime Correctional Scale Last Admin: 10/10/18 21:01 Dose: 5 units Levothyroxine Sodium (Synthroid) 112 mcg PO 0600 [facility] Last Admin: 10/11/18 05:09 Dose: 112 mcg Levothyroxine Sodium (Synthroid) 25 mcg PO 0600 [facility] Last Admin: 10/11/18 05:09 Dose: 25 mcg Loperamide HCl (Imodium) 2 mg PO PRN PRN PRN Reason: Diarrhea/Loose Stools Loratadine (Claritin) 10 mg PO DAILYPRN PRN PRN Reason: Sinus Symptoms Multivitamins (Theragran) 1 tab PO DAILY [facility] Last Admin: 10/11/18 09:52 Dose: 1 tab Nitroglycerin (Nitrostat) 0.4 mg SL Q5MIN PRN PRN Reason: .CHEST PAIN Ondansetron HCl (Zofran) 4 mg IVP Q6H PRN PRN Reason: Nausea/Vomiting Stop: 10/15/18 11:15 Ondansetron HCl (Zofran Odt) 4 mg SL Q6H PRN PRN Reason: Nausea/Vomiting Stop: 10/14/18 11:15 Pantoprazole Sodium (Protonix) 40 mg PO BID [facility] Last Admin: 10/11/18 09:52 Dose: 40 mg Pioglitazone HCl (Actos) 30 mg PO DAILY [facility] Last Admin: 10/11/18 09:51 Dose: 30 mg Rosuvastatin Calcium (Crestor) 20 mg PO DAILY [facility] Last Admin: 10/11/18 09:52 Dose: 20 mg Senna/Docusate Sodium (Senokot S) 2 tab PO BID PRN PRN Reason: Constipation Sodium Chloride (Ali Chukson Nasal Orange 0.65%) 0 ml EA NARE QIDPRN PRN PRN Reason: Nasal Congestion Throat Lozenges (Cepastat Lozenges) 1 glenroy PO Q2H PRN PRN Reason: Sore Throat Zolpidem Tartrate (Ambien) 5 mg PO HSPRN PRN PRN Reason: Insomnia
[2018-10-11] MEDS: HumaLOG 300 UNITS/3 ML VIAL SC PRN ×2 (11:35→16:43)
[2018-10-11] MEDS ORDERED: HumaLOG 300 UNITS/3 ML VIAL SC SCH (14:45)
--- NOTE | 2018-10-11 14:53 | CON ---
DATE OF CONSULTATION: REASON FOR CONSULT: Cholangiocarcinoma. HISTORY OF PRESENT ILLNESS: Mr. Vee is a pleasant 68-year-old male, who gets treatment by [facility] for metastatic cholangiocarcinoma. He was diagnosed over 2 years ago and has been on what sounds like a FOLFOX. He was stopped three months ago due to remission. He presented to the emergency room several days ago with complaints of shortness of breath. He had a large left pleural effusion. Dr. Ng performed a thoracentesis and path was positive for metastatic adenocarcinoma. The patient is breathing much better now. He denies any complaints of pain. We are asked to see the patient as he wishes to resume chemotherapy as soon as possible. PAST MEDICAL HISTORY: 1. Metastatic cholangiocarcinoma. 2. Hypertension. 3. Hyperlipidemia. 4. Diabetes. 5. Coronary artery disease. PAST SURGICAL HISTORY: 1. Multiple biopsies. 2. CABG x3. 3. Head surgery four years ago. ALLERGIES: NO DRUG ALLERGIES. HOME MEDICATIONS: 1. Tylenol 3. 2. Synthroid. 3. Theragran-M. 4. Nitroglycerin. 5. Prilosec. 6. Pioglitazone. 7. Crestor. 8. Januvia. 9. Aggrenox. FAMILY HISTORY: Noncontributory. SOCIAL HISTORY: , lives with his . REVIEW OF SYSTEMS: Negative except for noted in HPI. PHYSICAL EXAMINATION: VITAL SIGNS: Temperature 99.0, pulse is 98, respiratory rate 18, BP is 116/61, and he is 93% on room air. GENERAL: Well-developed, well-nourished male, in no acute distress. HEENT: Normocephalic and atraumatic. Pupils are equal and reactive to light. NECK: Supple. CV: Regular rate and rhythm. LUNGS: Clear. ABDOMEN: Soft and nontender. Bowel sounds are positive. EXTREMITIES: No clubbing, cyanosis, or edema. SKIN: No rash. NEUROLOGIC: Nonfocal. PSYCH: He is alert and oriented. PERTINENT LABS AND X-RAYS: Current WBCs are 9.9, hemoglobin 10.2, hematocrit 31.2, and platelet count 214,000. Sodium is 131, potassium is 3.7, chloride 97, CO2 is 27, BUN is 10, creatinine is 0.69, calcium is 8.3, total bilirubin is 0.5, AST is 31, ALT is 28, alkaline phosphatase is 329, serum total protein is 6.6, albumin is 2.9, and globulin is 3.9. ASSESSMENT: Metastatic cholangiocarcinoma. DISCUSSION: The patient has been in contact with his oncologist at [facility], who has faxed chemotherapy orders over to [facility]. They are having a hard time getting in contact with Dr. Tran's office and asked the [facility] to see if we could assist with chemotherapy. The patient and were informed that medical records from [facility] would have to be obtained and could be faxed over and we could likely see the patient next week, but chemo would probably start the week after. Recommended they continue to contact Dr. Tran's office and call if they would like to switch to our clinic. Thank you for the consult on this pleasant gentleman. Job ID: [id number]
[2018-10-12] MEDS: Acetaminophen/Codeine 30-300mg Tablet PO PRN (00:28)
[2018-10-12] MEDS: Levothyroxine Sodium 112 MCG TAB PO SCH (05:32)
[2018-10-12] MEDS: Levothyroxine Sodium 25 MCG TAB PO SCH (05:32)
[2018-10-12] MEDS: HumaLOG 300 UNITS/3 ML VIAL SC PRN (05:33)
[2018-10-12] MEDS: Multivit, Therapeutic 1 TAB PO SCH (08:38)
[2018-10-12] MEDS: Alogliptin 25 MG TAB PO SCH (08:38)
[2018-10-12] MEDS: Rosuvastatin 20 MG TAB PO SCH (08:38)
[2018-10-12] MEDS: HumuLIN 70/30 (300 UNITS/3 ML VIAL) SC SCH ×2 (10:20→11:35)
--- NOTE | 2018-10-12 10:47 | DIS ---
DATE OF ADMISSION: 10/09/2018 DATE OF DISCHARGE: 10/12/2018 PRIMARY CARE PHYSICIAN: Dr. Saurav Diego. DISCHARGE DISPOSITION: Home. PRIMARY DISCHARGE DIAGNOSES: 1. Metastatic cholangio-adenocarcinoma. 2. Hyponatremia. 3. Left pleural effusion, status post thoracentesis. 4. Splenic infarction. SECONDARY DISCHARGE DIAGNOSES: 1. anemia. 2. Hypothyroidism. 3. Gastroesophageal reflux disease. 4. Dyslipidemia. 5. Diabetes type 2. 6. Coronary artery disease. PRIMARY PROCEDURE AND OPERATION: Thoracentesis for left pleural effusion, was performed by Dr. Ng. RADIOLOGICAL INVESTIGATION: Chest, abdomen and pelvis CT scan showed large left pleural effusion as well as right pleural effusion. The patient was found with metastatic disease with pulmonary nodule, peritoneal carcinomatosis, liver metastasis, infarction of the spleen, large left pleural effusion, as well as small right pleural effusion, gallbladder fossa mass affecting duodenum. SIGNIFICANT LABORATORY DATA: WBC 9.9, hemoglobin 10.2, and platelets 214. Sodium 131, potassium 3.7, creatinine 0.69, alkaline phosphatase 329, albumin 2.7. Pleural fluid wbc 1995, rbc 1318, LDH 262, pH 7.6. Blood culture negative. Pleural fluid culture negative. DISCHARGE MEDICATIONS: The patient will continue all his previous medications, 1. Tylenol No. 3 one tablet q.6 hourly p.r.n. 2. Synthroid 137 mcg daily. 3. Multivitamin 1 tablet daily. 4. Nitroglycerin p.r.n. basis. 5. Omeprazole 40 mg p.o. b.i.d. 6. Actos 30 mg daily. 7. Crestor 20 mg p.o. daily. 8. Januvia 100 mg p.o. daily. 9. Aggrenox 1 capsule daily. CONTRAINDICATION: None. CODE STATUS: DNR. 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 Dr. Ernie Ng was consulted, who did thoracentesis. 2. Roxanne Grant with oncologist saw this patient. TEST RESULTS PENDING ON DISCHARGE: None. ALLERGIES: METFORMIN. DISCHARGE PLAN: Posthospital, the patient has appointment with his oncologist at [facility] for chemotherapy on Sunday, October 14, 2018. The patient will have appointment with Dr. Saurav Diego in 1 week. HOSPITAL COURSE: This is a 68-year-old male, who has metastatic cholangio-adenocarcinoma, and he is following with the oncologist at [facility]. He was getting chemotherapy under guidance at [facility]. At this time , he was admitted by Dr. Colon. Please see his H and P for further details. On admission, the patient was having dyspnea on exertion. He was not able to walk without getting short of breath. He came to emergency room, and he had a chest x-ray, which showed large pleural effusion on the left side. The patient also had chest, abdomen, and pelvis because the patient was also complaining of vague upper abdominal discomfort. This patient was found with metastatic cholangio-adenocarcinoma with mass spread locally as well as distally in duodenum lymph node, liver, spleen with splenic infarction, pulmonary nodule, and pleural effusion. After thoracentesis, the patient felt much better. The patient was evaluated by Oncology Group while in the hospital. The patient was also evaluated by Palliative Care Team. At this point, the patient has decided that he will continue his chemotherapy and he has appointment with the oncologist on October 14. This patient's long-term prognosis is very poor. At this point, his performance status is good. He will benefit from trial of chemotherapy for palliative purpose. He will continue all his previous medication. He wants to go home today. I have seen and examined the patient bedside today. His air entry has improved on the left side. Air entry is reduced at the base of the right side. He still has vague upper abdominal discomfort. Other than that, all examination is normal. His vitals are also stable. He is at high risk for recurrent admission from either chemo-related side effects versus underlying disease process. Plan of care discussed with the patient and his at bedside. Job ID: [id number] [facility]
[2018-10-12] MEDS: Pioglitazone HCl 15 MG TAB PO SCH (11:33)
[2018-10-12 11:51] VITALS: BP 123/75; TEMP 97.6
== END 2018-10-12 11:47 | disposition home or self-care (01) | DRG 187 ==
LOC: ERS 21:13 → 2NO 23:15 → T4-B 10-11 15:27
PROVIDERS: ADMIT Internal Medicine; ATTEND Internal Medicine
PROC: 0W9B30Z Drainage of Left Pleural Cavity with Drainage Device, Percutaneous Approach (ICD-10-PCS; principal; 2018-10-10)
DX: J90 Pleural effusion, not elsewhere classified (principal); C23 Malignant neoplasm of gallbladder; E87.1 Hypo-osmolality and hyponatremia; C77.9 Secondary and unspecified malignant neoplasm of lymph node, unspecified; C78.7 Secondary malignant neoplasm of liver and intrahepatic bile duct; C78.4 Secondary malignant neoplasm of small intestine; E78.5 Hyperlipidemia, unspecified; I10 Essential (primary) hypertension; F32.9 Major depressive disorder, single episode, unspecified; E11.9 Type 2 diabetes mellitus without complications; D73.5 Infarction of spleen; K21.9 Gastro-esophageal reflux disease without esophagitis; E03.9 Hypothyroidism, unspecified; D53.9 Nutritional anemia, unspecified; I25.10 Atherosclerotic heart disease of native coronary artery without angina pectoris; Z95.1 Presence of aortocoronary bypass graft; Z79.899 Other long term (current) drug therapy; Z90.49 Acquired absence of other specified parts of digestive tract
CPT/HCPCS: 36415; 36416; 71045; 71260; 74177; 80053; 82150; 82550; 82945; 83605; 83615; 83986; 84157; 84478; 84484; 85025; 85060; 87040; 87070; 87116; 87205; 87206; 88112; 88305; 89051; 90471; 90670; 93005; 96365; 96367; 96375; G0009; J1642; J1815; J2270; J2543; J3370

== ENCOUNTER 2018-10-18 16:54 | Inpatient (IN) | payer MEDICARE, BC ==
[2018-10-18 18:04] LABS: #Eosinphils 0.1 thou/uL (0.0-0.7); #Lymphocytes 0.8 thou/uL (1.20-3.40); #Monocytes 0.1 thou/uL (0.11-0.59); #Neutrophils 6.4 thou/uL (1.40-6.50); %Basophils 0.3 % (0.0-1.0); %Eosinophils 1.2 % (0.0-10.0); %Lymphocytes 10.7 % (21.0-51.0); %Monocytes 1.2 % (0.0-10.0); %Neutrophils 86.7 % (42.0-75.0); Hemoglobin 10.9 g/dL (14.0-18.0); Mean Corpuscular HGB CONC 32.6 g/dL (32.0-36.0); Mean Corpuscular Hemoglobin 32.8 pg (27.0-31.0); Mean Platelet Volume 7.8 fL (7.4-10.4); Platelet Count 146 thou/uL (130-400); RBC Distribution Width 14.6 % (11.5-14.5); Red Blood Cell (RBC) Count 3.33 mill/uL (4.70-6.10); White Blood Cell (WBC) Count 7.4 thou/uL (4.8-10.8)
[2018-10-18 18:28] LABS: ALT (SGPT) 53 U/L (8-55); AST (SGOT) 40 U/L (5-34); Albumin 3.1 g/dL (3.4-4.8); Alkaline Phosphatase 683 U/L (40-150); Anion Gap 14 mmol/L (10-20); BUN (Urea Nitrogen) 15 mg/dL (8.4-25.7); Bilirubin, Total 0.6 mg/dL (0.2-1.2); Calc. Creatinine Clearance 0 mL/min (70-130); Calcium 8.9 mg/dL (7.8-10.44); Carbon Dioxide 27 mmol/L (23-31); Chloride 95 mmol/L (98-107); Estimated GFR-MDRD 78; Globulin 4.4 g/dL (2.4-3.5); Glucose 393 mg/dL (80-115); Lipase 205 U/L (8-78); Potassium 4.1 mmol/L (3.5-5.1); Protein, Total 7.5 g/dL (5.8-8.1); Sodium 132 mmol/L (136-145)
--- NOTE | 2018-10-18 18:30 | RAD ---
AP CHEST: 10/18/18 HISTORY: Shortness of breath. History of malignancy. COMPARISON: 10/10/18. Cardiomegaly. Mild vascular engorgement. Bilateral effusions and bibasilar atelectasis. Pulmonary gideon ma appears less pronounced than on the prior study. Bibasilar atelectasis and infiltrates; however, are more pronounced. POS: [facility]
--- NOTE | 2018-10-18 18:40 | CT ---
CTA CHEST WITH CONTRAST: 10/18/18 Multiple axial tomograms obtained through the chest following angio protocol with multiplanar reconst ruction and 3D post processing. INDICATIONS: Shortness of breath. History of lung cancer. Comparison made to recent CT chest 10/09/18. FINDINGS: Pulmonary arteries show adequate enhancement. No evidence of proximal pulmonary embolus. There is cruz dence of a tiny filling defect in a distal right lower lobe pulmonary artery at the subsegmental leve l. No other evidence of pulmonary embolus. Moderately large bilateral effusions which have increased in size on the right when compared to the prior exam. Compressive lung atelectasis is noted. There is a nodular mass in the right lung base. The low density mass in the liver with central gas density is unchanged in appearance from 10/09/18. Thoracic aorta unremarkable. IMPRESSION: 1. Evidence of a small embolus in a distal right lower lobe pulmonary artery. 2. Moderate sized bilateral effusions. The right effusion has increased in size when compared to recent exam. Atelectasis in both lungs with a nodular mass in the right lung base. 3. Low density lesion with central gas density in the liver was described on recent CT of 10/09/18 and appears unchanged. Findings relayed to the patient's PA at time of dictation. POS: [facility]
[2018-10-18] MEDS ORDERED: Enoxaparin Sodium 80 MG/0.8 ML SYRINGE ONE (18:54)
[2018-10-18 21:36] LABS: Troponin I Less than 0.010 ng/mL (< 0.028)
[2018-10-18] MEDS ORDERED: Bisacodyl 5 MG TAB PO PRN (21:37)
[2018-10-18] MEDS ORDERED: Ondansetron PF 4 MG/2 ML Vial IVP PRN (21:37)
[2018-10-18] MEDS: Acetaminophen 325 MG TAB PO PRN (22:21)
[2018-10-18] MEDS ORDERED: Dextrose 50% Abboject 50 ML SYRINGE SLOW IVP PRN (22:23)
[2018-10-18] MEDS ORDERED: Dextrose 5% in Water 1,000 ML IV PRN (22:23)
--- NOTE | 2018-10-18 22:49 | HP ---
PRIMARY CARE PROVIDER: Dr. Saurav Diego. CHIEF COMPLAINT: Shortness of breath. HISTORY OF PRESENT ILLNESS: Mr. Vee is a pleasant 68-year-old gentleman who was seen at [facility] on October 18, 2018. He was hospitalized at this facility from October 09 to October 12 of this year for metastatic cholangio adenocarcinoma, hyponatremia, left pleural effusion, status post thoracentesis and splenic infarction. The patient is able to provide good history. Collateral history was also obtained from his by the bedside. Both the patient and report that his appetite has been extremely poor. He is not able to eat much secondary to poor appetite. He has been feeling weak. He received chemotherapy 3 days ago. He was seen by primary care provider yesterday. He was told that he had fluid over his lungs after a chest x-ray was done. He was started on home oxygen through primary care provider's office. However, the patient continued to have shortness of breath. He also reports pain across his upper abdomen, but is unable to describe it further. He therefore presented to the emergency room. In the emergency room, he was found to have pulmonary embolism as well as bilateral pleural effusions and was referred to Hospitalist Service. REVIEW OF SYSTEMS: All other systems were reviewed and found to be negative. PAST MEDICAL HISTORY: Metastatic cholangio adenocarcinoma, splenic infarction, dyslipidemia, hypertension, diabetes mellitus, coronary artery disease. PAST SURGICAL HISTORY: Coronary artery bypass graft x3 and head surgery. PSYCHIATRIC HISTORY: Depression. FAMILY HISTORY: No family history of premature coronary artery disease. CODE STATUS: I discussed his code status. He is DNAR. ALLERGIES: METFORMIN. CURRENT MEDICATIONS: 1. Aggrenox 1 tablet 2 times a day. 2. Metoprolol succinate 12.5 mg 2 times a day. 3. Tylenol No. 3 p.r.n. 4. Omeprazole 40 mg 2 times a day. 5. Vitamin B complex plus vitamin C 1 tablet daily. 6. Levothyroxine 137 mcg daily. 7. Magnesium oxide 400 mg daily. 8. Nitroglycerin p.r.n. 9. Januvia 100 mg daily. 10. Pioglitazone 30 mg daily. PHYSICAL EXAMINATION: GENERAL: On examination, Mr. Vee is awake and alert, not in acute distress. VITAL SIGNS: Blood pressure is 108/50, pulse 101, respiratory rate 20, and saturation 93% on 2 L of oxygen. He is afebrile. HEENT: Eyes, no conjunctival pallor, no scleral icterus. ENT: Moist mucosal membranes. No oropharyngeal erythema or exudates. NECK: Supple, nontender, trachea is midline. RESPIRATORY: Accessory muscles of breathing are active. Chest wall movements are symmetric bilaterally. He has diminished air entry at both bases. CARDIOVASCULAR: S1 and S2 are heard, regular. Peripheral pulses palpable. No carotid bruit. No pericardial rub. ABDOMEN: Soft, nontender, bowel sounds are heard, no hepatomegaly, no splenomegaly. NEUROLOGIC: Cranial nerves 2 through 12 intact, deep tendon reflexes 2+. MUSCULOSKELETAL: Power is 5/5 in all 4 extremities. SKIN: No rashes or subcutaneous nodules. LYMPHATIC: No cervical lymphadenopathy. LABORATORY DATA: Mr. Vee's labs and investigations were reviewed. I reviewed his electrocardiogram, which shows normal sinus rhythm, no ST changes to suggest an acute coronary syndrome. I also reviewed his chest x-ray, which shows bilateral pleural effusions. He has normal white count, macrocytic anemia with hemoglobin 10.9, normal platelet count, decreased sodium of 132, normal potassium, normal creatinine, elevated AST of 40, normal ALT, normal total bilirubin, elevated alkaline phosphatase of 683, up from 329 on October 11, 2018, decreased albumin of 3.1, elevated lipase of 205 and normal troponin I x2. Patient also had CT angiogram of the chest, which showed embolus in the distal right lower lobe pulmonary artery, moderate-sized bilateral effusions, and low-density lesion with central gas density in the liver, which was also described on the CT scan from October 09, 2018, and appears unchanged. ASSESSMENT AND PLAN: Mr. Vee is a pleasant 68-year-old gentleman who was seen at [facility] on October 18, 2018. His problem list includes; 1. Pulmonary embolism: Mr. Vee is presenting with a small pulmonary embolism. He has received anticoagulation in the emergency room in the form of Lovenox. He will be admitted to the hospital for further management. He will continue to receive anticoagulation. Pulmonology Service will also be consulted both for management of pulmonary embolism and for pleural effusions. At this point in time, there is no evidence of infection in the form of leukocytosis or fever. We will not start antibiotics at this time. 2. Generalized weakness: Mr. Vee reports generalized weakness, most likely secondary to poor oral intake. Dietitian will be consulted. We will start him on low-dose Marinol to see if it helps improve his appetite. We will request physical therapy evaluation and treatment. 3. Diabetes mellitus type 2: We will start the patient on Accu-Cheks and insulin sliding scale. 4. Hypertension: We will continue patient's home medications, monitor vital signs and titrate antihypertensives as needed. 5. Metastatic cholangio adenocarcinoma: The patient's prognosis appears poor. We will consult Palliative Care Service for goals of care and symptom management. 6. Coronary artery disease: Appears to be stable. The patient denies any chest pain at this time. 7. Acute pancreatitis: The patient complains of upper abdomen pain and has mildly elevated lipase. We will recheck lipase level. Many thanks for allowing me to participate in Mr. Vee's care. Please feel free to contact me with any questions or concerns. LEVEL OF RISK: High. LEVEL OF COMPLEXITY: High. Job ID: [id number]
[2018-10-18] MEDS: HumaLOG 300 UNITS/3 ML VIAL SC PRN (23:26)
[2018-10-19 00:20] LABS: Troponin I Less than 0.010 ng/mL (< 0.028)
[2018-10-19] MEDS: HumaLOG 300 UNITS/3 ML VIAL SC PRN ×4 (06:18→21:13)
[2018-10-19 07:19] LABS: #Eosinphils 0.2 thou/uL (0.0-0.7); #Lymphocytes 0.9 thou/uL (1.20-3.40); #Monocytes 0.2 thou/uL (0.11-0.59); #Neutrophils 5.5 thou/uL (1.40-6.50); %Basophils 0.2 % (0.0-1.0); %Lymphocytes 12.8 % (21.0-51.0); %Monocytes 3.4 % (0.0-10.0); %Neutrophils 80.7 % (42.0-75.0); Mean Corpuscular HGB CONC 32.7 g/dL (32.0-36.0); Mean Corpuscular Hemoglobin 32.7 pg (27.0-31.0); Mean Platelet Volume 7.8 fL (7.4-10.4); Platelet Count 157 thou/uL (130-400); RBC Distribution Width 14.4 % (11.5-14.5); Red Blood Cell (RBC) Count 3.04 mill/uL (4.70-6.10); White Blood Cell (WBC) Count 6.8 thou/uL (4.8-10.8)
[2018-10-19 07:44] LABS: Anion Gap 12 mmol/L (10-20); BUN (Urea Nitrogen) 11 mg/dL (8.4-25.7); Calc. Creatinine Clearance 101 mL/min (70-130); Calcium 8.6 mg/dL (7.8-10.44); Carbon Dioxide 29 mmol/L (23-31); Chloride 97 mmol/L (98-107); Estimated GFR-MDRD Greater than 90; Glucose 269 mg/dL (80-115); Lipase 258 U/L (8-78); Potassium 3.6 mmol/L (3.5-5.1); Sodium 134 mmol/L (136-145)
[2018-10-19] MEDS ORDERED: diphenhydrAMINE 25 MG CAP PO PRN (08:13)
[2018-10-19] MEDS ORDERED: Loratadine 10 MG TAB PO PRN (08:13)
[2018-10-19] MEDS ORDERED: Sodium Chloride 0.65% Nasal 44 ML BOT EA NARE PRN (08:13)
[2018-10-19] MEDS ORDERED: Artificial Tears 18 DROP/0.9 ML EA EYE PRN (08:13)
[2018-10-19] MEDS ORDERED: HYDROcodone/Acetaminophen 5/325 mg Tablet PO PRN (08:13)
[2018-10-19] MEDS ORDERED: Senokot S 8.6-50 MG TAB PO PRN (08:13)
[2018-10-19] MEDS ORDERED: Zolpidem Tartrate 5 MG TAB PO PRN (08:13)
[2018-10-19] MEDS ORDERED: hydrALAZINE 20 MG/ML VIAL SLOW IVP PRN (08:13)
[2018-10-19] MEDS ORDERED: Diabetic Tussin 200 MG/10 ML UDCUP PO PRN (08:13)
[2018-10-19] MEDS ORDERED: Cepastat Lozenges 1 LOZ PO PRN (08:13)
[2018-10-19] MEDS ORDERED: Loperamide HCl 2 MG CAP PO PRN (08:13)
[2018-10-19] MEDS ORDERED: Ondansetron ODT 4 MG TAB PO PRN (08:13)
[2018-10-19] MEDS: Enoxaparin Sodium 80 MG/0.8 ML SYRINGE SC SCH ×2 (08:24→21:12)
[2018-10-19] MEDS: Pioglitazone HCl 15 MG TAB PO SCH (08:28)
[2018-10-19] MEDS: Multivit, Therapeutic 1 TAB PO SCH (08:29)
[2018-10-19] MEDS: Alogliptin 25 MG TAB PO SCH (08:29)
[2018-10-19] MEDS: Rosuvastatin 20 MG TAB PO SCH (08:29)
[2018-10-19] MEDS ORDERED: Levothyroxine Sodium 75 MCG TAB PO SCH (09:00)
[2018-10-19] MEDS ORDERED: Non-Formulary Item 1 EACH (Pioglitazone Hcl [Pioglitazone Hcl] 30 MG) PO SCH (09:00)
[2018-10-19] MEDS: Dronabinol 2.5 MG CAP PO SCH ×2 (09:12→16:16)
--- NOTE | 2018-10-19 11:18 | PDOC.PN ---
- Subjective Encounter Start Date: 10/19/18 Encounter Start Time: 08:00 -: old records requested/rev Patient seen and examined. No new complaints. No overnight events - Objective Resuscitation Status - Order Detail: 10/18/18 21:37 Resuscitation Status Routine Resuscitation Status: DNAR: NO Resuscitation Discussed with: patient and ERIKA Reviewed: Yes Vital Signs & Weight: Vital Signs (12 hours) Temp Pulse Resp BP Pulse Ox 10/19/18 08:00 96 F L 108 H 18 126/60 99 10/19/18 04:18 98.6 F 102 H 111/73 93 L Weight Admit Weight 170 lb 6.4 oz Weight 169 lb 6.4 oz I&O: 10/18/18 10/19/18 10/20/18 06:59 06:59 06:59 Intake Total 0 Output Total 325 Balance -325 Result Diagrams: 10/19/18 07:01 10/19/18 07:01 Additional Labs: Accuchecks 10/19/18 10/18/18 05:33 22:40 POC Glucose 300 H 314 H Radiology Reviewed by me: Yes (CTA noted) EKG Reviewed by me: Yes (nsr) Phys Exam - Physical Examination Constitutional: NAD HEENT: PERRLA, moist MMs, sclera anicteric Neck: no JVD, supple Respiratory: no wheezing, no rales, no rhonchi air entry reduced bilateral Cardiovascular: RRR, no significant murmur, no rub Gastrointestinal: soft, non-tender, no distention, positive bowel sounds Musculoskeletal: no edema, pulses present Neurological: non-focal, normal sensation, moves all 4 limbs Lymphatic: no nodes Psychiatric: normal affect, A&O x 3 Skin: no rash, normal turgor Dx/Plan (1) Bilateral pleural effusion Code(s): J90 - PLEURAL EFFUSION, NOT ELSEWHERE CLASSIFIED Status: Acute (2) Pulmonary embolism Code(s): I26.99 - OTHER PULMONARY EMBOLISM WITHOUT ACUTE COR PULMONALE Status : Acute (3) CAD (coronary artery disease) Code(s): I25.10 - ATHSCL HEART DISEASE OF [place] CORONARY ARTERY W/O ANG PCTRS Status: Chronic Comment: with h/o cabg (4) Cholangiocarcinoma Code(s): C22.1 - INTRAHEPATIC BILE DUCT CARCINOMA Status: Chronic Comment: with metastasis to lung, liver, lymph node and duodenam involvement, pt is following [facility] and he has been on chemotherapy trial (5) Diabetes type 2, controlled Code(s): E11.9 - TYPE 2 DIABETES MELLITUS WITHOUT COMPLICATIONS Status: Chronic (6) Dyslipidemia Code(s): E78.5 - HYPERLIPIDEMIA, UNSPECIFIED Status: Chronic (7) GERD (gastroesophageal reflux disease) Code(s): K21.9 - GASTRO-ESOPHAGEAL REFLUX DISEASE WITHOUT ESOPHAGITIS Status: Chronic (8) Hyponatremia Code(s): E87.1 - HYPO-OSMOLALITY AND HYPONATREMIA Status: Chronic (9) Hypothyroidism Code(s): E03.9 - HYPOTHYROIDISM, UNSPECIFIED Status: Chronic (10) Macrocytic anemia Code(s): D53.9 - NUTRITIONAL ANEMIA, UNSPECIFIED Status: Chronic (11) Splenic infarction Code(s): D73.5 - INFARCTION OF SPLEEN Status: Chronic - Plan cont current plan of care, plan discussed w/ family * continue lovenox * pulmonary consulted * pt is on chemotherapy at [facility] * his prognosis is guarded * I spoke with entire family and answered their questions * medication reviewed as below * symptomatic treatment. Review of Systems - Review of Systems Constitutional: weakness. negative: fever, chills, sweats, malaise, other ENT: negative: Ear Pain, Ear Discharge, Nose Pain, Nose Discharge, Nose Congestion, Mouth Pain, Mouth Swelling, Throat Pain, Throat Swelling, Other Respiratory: SOB with Excertion. negative: Cough, Dry, Shortness of Breath, Hemoptysis, Pleuritic Pain, Sputum, Wheezing Cardiovascular: negative: chest pain, palpitations, orthopnea, paroxysmal nocturnal dyspnea, edema, light headedness, other Gastrointestinal: negative: Nausea, Vomiting, Abdominal Pain, Diarrhea, Constipation, Melena, Hematochezia, Other Genitourinary: negative: Dysuria, Frequency, Incontinence, Hematuria, Retention , Other Musculoskeletal: negative: Neck Pain, Shoulder Pain, Arm Pain, Back Pain, Hand Pain, Leg Pain, Foot Pain, Other Skin: negative: Rash, Lesions, Bryan, Bruising, Other - Medications/Allergies Allergies/Adverse Reactions: Allergies Allergy/AdvReac Type Severity Reaction Status Date / Time metformin Allergy Verified 10/10/18 01:18 Medications: Current Medications Acetaminophen (Tylenol) 650 mg PO Q4H PRN PRN Reason: Headache/Fever/Mild Pain (1-3) Last Admin: 10/18/18 22:21 Dose: 650 mg Hydrocodone Bitart/Acetaminophen ([place] 5/325) 1 tab PO Q4H PRN PRN Reason: Moderate Pain (4-6) Alogliptin Benzoate (Alogliptin) 25 mg PO DAILY [facility] Last Admin: 10/19/18 08:29 Dose: 25 mg Artificial Tears (Tears Naturale) 2 drop EA EYE PRN PRN PRN Reason: Dry Eyes Bisacodyl (Dulcolax) 10 mg PO DAILYPRN PRN PRN Reason: Constipation Dextrose/Water (Dextrose 50%) 25 gm SLOW IVP PRN PRN PRN Reason: Hypoglycemia Diphenhydramine HCl (Benadryl) 25 mg PO Q4H PRN PRN Reason: Itching & Hives (mild) Dronabinol (Marinol) 2.5 mg PO BID-AC [facility] Last Admin: 10/19/18 09:12 Dose: 2.5 mg Enoxaparin Sodium (Lovenox) 75 mg SC 0900,2100 [facility] Last Admin: 10/19/18 08:24 Dose: 75 mg Glucagon (Glucagon) 1 mg IM PRN PRN PRN Reason: Hypoglycemia Guaifenesin (Robitussin Sf) 200 mg PO Q4H PRN PRN Reason: Cough Hydralazine HCl (Apresoline) 10 mg SLOW IVP Q4H PRN PRN Reason: SBP > 180 and HR < 70 Dextrose/Water (D5w) 1,000 mls @ 0 mls/hr IV .Q0M PRN PRN Reason: Hypoglycemia Insulin Human Lispro (Humalog) 0 units SC .MILD SLIDING SCALE PRN PRN Reason: Mild Correctional Scale Last Admin: 10/19/18 06:18 Dose: 4 unit Insulin Human Lispro (Humalog) 0 units SC .BEDTIME SLIDING SC PRN PRN Reason: Bedtime Correctional Scale Last Admin: 10/18/18 23:26 Dose: 4 unit Levothyroxine Sodium (Synthroid) 112 mcg PO 0600 [facility] Levothyroxine Sodium (Synthroid) 25 mcg PO 0600 [facility] Loperamide HCl (Imodium) 2 mg PO PRN PRN PRN Reason: Diarrhea/Loose Stools Loratadine (Claritin) 10 mg PO DAILYPRN PRN PRN Reason: Sinus Symptoms Morphine Sulfate (Morphine) 2 mg SLOW IVP Q4H PRN PRN Reason: Pain Multivitamins (Theragran) 1 tab PO DAILY [facility] Last Admin: 10/19/18 08:29 Dose: 1 tab Ondansetron HCl (Zofran) 4 mg IVP Q6H PRN PRN Reason: Nausea/Vomiting Ondansetron HCl (Zofran Odt) 4 mg PO Q6H PRN PRN Reason: Nausea/Vomiting Pioglitazone HCl (Actos) 30 mg PO DAILY [facility] Last Admin: 10/19/18 08:28 Dose: 30 mg Rosuvastatin Calcium (Crestor) 20 mg PO DAILY [facility] Last Admin: 10/19/18 08:29 Dose: 20 mg Senna/Docusate Sodium (Senokot S) 2 tab PO BID PRN PRN Reason: Constipation Sodium Chloride ([place] Nasal [place] 0.65%) 0 ml EA NARE QIDPRN PRN PRN Reason: Nasal Congestion Sodium Chloride (Flush - Normal Saline) 10 ml IVF Q12HR [facility] Last Admin: 10/19/18 08:27 Dose: 10 ml Sodium Chloride (Flush - Normal Saline) 10 ml IVF PRN PRN PRN Reason: Saline Flush Throat Lozenges (Cepastat Lozenges) 1 glenroy PO Q2H PRN PRN Reason: Sore Throat Zolpidem Tartrate (Ambien) 5 mg PO HSPRN PRN PRN Reason: Insomnia
--- NOTE | 2018-10-19 13:32 | CON ---
DATE OF CONSULTATION: 10/19/2018 CONSULTING PHYSICIAN: [facility]ist Group. REASON FOR CONSULTATION: Pulmonary embolism and effusion. HISTORY OF PRESENT ILLNESS: The patient is a pleasant 68-year-old male who came to the hospital last night because he says he did not feel right. He was not especially feeling short of breath. However, he did have a CT angio performed, which showed a small right lower lobe pulmonary embolism. He has bilateral effusions. I am not for sure that his left one is malignant because it was tapped by Dr. Ng about 9 days ago. At the current time, he is not complaining of shortness of breath. He does have a history of metastatic cholangiocarcinoma. PAST MEDICAL HISTORY: 1. Metastatic cholangiocarcinoma. 2. Splenic infarction. 3. Hyperlipidemia. 4. Hypertension. 5. Diabetes mellitus, type 2. 6. Coronary artery disease. PAST SURGICAL HISTORY: 1. Coronary artery bypass grafting surgery by Dr. Langford. 2. Head surgery. PSYCHIATRIC HISTORY: Remarkable for depression. FAMILY MEDICAL HISTORY: Unremarkable. CODE STATUS: DNAR. ALLERGIES: METFORMIN. MEDICATIONS: Prior to admission; 1. Aggrenox. 2. Metoprolol. 3. Omeprazole. 4. Levothyroxine. 5. Magnesium. 6. Nitroglycerin. 7. Januvia. 8. Pioglitazone. REVIEW OF SYSTEMS: A 12-point review of systems is otherwise negative. PHYSICAL EXAMINATION: VITAL SIGNS: Temperature 96.0, pulse 108, respirations 18, O2 saturation is 99% on 2 L, and blood pressure 126/60. GENERAL: The patient is awake, alert, currently not wearing oxygen. He is lying supine in bed and is not in any respiratory distress. HEENT: Unremarkable. NECK: No adenopathy or JVD. LUNGS: Diminished breath sounds at both bases, left greater than right. CARDIAC: S1, S2. Regular. ABDOMEN: He has a fluid wave present at right lower quadrant. His abdomen is somewhat distended. He has a large right upper quadrant surgical scar that is well healed. EXTREMITIES: No clubbing, cyanosis, or edema. LABORATORY DATA: White blood cell count 6.8, hematocrit 30, and platelet count 157. Sodium 134, potassium 3.6, chloride 97, CO2 of 29, BUN 11, creatinine 0.7, glucose 269, alkaline phosphatase 683, AST 40, ALT 53, and total bilirubin 0.6. I reviewed his CT scan personally. The patient has bilateral effusions, left more so than the right. ASSESSMENT: 1. Metastatic cholangiocarcinoma. 2. Small pulmonary embolism. 3. Pleural effusion. PLAN: 1. Given the reaccumulation of pleural effusion, he would probably do best with a PleurX catheter. This is not an emergent need. He has requested that Dr. Langford involved. Dr. Langford is available as Dr. Langford did surgery on him previously. I think this could definitely wait till Sunday. 2. Continue Lovenox as anticoagulation. 3. Prognosis is very poor. Job ID: [id number]
[2018-10-19] MEDS: Acetaminophen 325 MG TAB PO PRN (16:16)
--- NOTE | 2018-10-19 16:45 | EKG ---
Test Reason : CP Blood Pressure : / mmHG Vent. Rate : 102 BPM Atrial Rate : 102 BPM P-R Int : 148 ms QRS Dur : 078 ms QT Int : 338 ms P-R-T Axes : 022 023 017 degrees QTc Int : 440 ms Sinus tachycardia Low voltage QRS Cannot rule out Anterior infarct , age undetermined Abnormal ECG Confirmed by NOEL CHIN ([id number]), editor trade journal GABRIEL STRICKLAND ([id number]) on 10/19/2018 4:45:17 PM Referred By: Confirmed By:NOEL CHIN
--- NOTE | 2018-10-19 16:58 | CON ---
DATE OF CONSULTATION: 10/19/2018 REASON FOR CONSULTATION: Evaluate the patient with recurrent left pleural effusion with history of metastatic cholangiocarcinoma. HISTORY OF PRESENT ILLNESS: Mr. Vee was admitted with pulmonary embolism and bilateral pleural effusions. He had his left effusion tapped by Dr. Ng approximately 9 days ago. It has recurred and the chest is about 3[address] angiogram last night. I have been asked to see him to place a PleurX catheter. PAST MEDICAL HISTORY: 1. Metastatic cholangiocarcinoma. 2. Splenic infarction. 3. Hyperlipidemia. 4. Hypertension. 5. Diabetes mellitus. 6. Coronary artery disease status post coronary artery bypass grafting. PAST SURGICAL HISTORY: 1. Hip surgery. 2. Coronary artery bypass grafting. ALLERGIES: METFORMIN. CURRENT MEDICATIONS: Noted. PHYSICAL EXAMINATION: GENERAL: This is an elderly, diminutive gentleman, resting comfortably in bed. VITAL SIGNS: Height is 5 feet 10 inches, weight is 169 pounds. Temperature is 97.3, pulse is 100, blood pressure is 124/58. LUNGS: Diminished breath sounds over both bases. HEART: Rhythm is regular. ABDOMEN: Soft. EXTREMITIES: No edema. DIAGNOSTIC STUDIES: I have reviewed his chest x-ray series and CT angiogram from last night. ASSESSMENT AND PLAN: Left PleurX catheter placement on Sunday. Job ID: [id number]
[2018-10-19 18:33] VITALS: BMI 24.3
--- NOTE | 2018-10-19 20:44 | RAD ---
PORTABLE CHEST: 10/19/18 HISTORY: Shortness of breath. COMPARISON: 10/18/18. FINDINGS/IMPRESSION: Bilateral effusion, larger on the left. Bibasilar atelectasis. Cardiomegaly. Vascular engorgement. Th e vascular congestion is slightly less pronounced than yesterday. Effusions do not appear significan tly changed. POS: [facility]
[2018-10-20] MEDS: HumaLOG 300 UNITS/3 ML VIAL SC PRN ×4 (05:17→20:49)
[2018-10-20] MEDS: Levothyroxine Sodium 112 MCG TAB PO SCH (05:17)
[2018-10-20] MEDS: Levothyroxine Sodium 25 MCG TAB PO SCH (05:17)
[2018-10-20] MEDS: Pioglitazone HCl 15 MG TAB PO SCH (08:13)
[2018-10-20] MEDS: Alogliptin 25 MG TAB PO SCH (08:13)
[2018-10-20] MEDS: Rosuvastatin 20 MG TAB PO SCH (08:13)
[2018-10-20] MEDS: Multivit, Therapeutic 1 TAB PO SCH (08:13)
[2018-10-20] MEDS: Dronabinol 2.5 MG CAP PO SCH ×2 (08:14→16:56)
[2018-10-20] MEDS: Enoxaparin Sodium 80 MG/0.8 ML SYRINGE SC SCH ×2 (08:15→20:52)
--- NOTE | 2018-10-20 11:28 | PDOC.PN ---
- Subjective Encounter Start Date: 10/20/18 Encounter Start Time: 07:45 Patient seen and examined. No new complaints. No overnight events - Objective Resuscitation Status - Order Detail: 10/18/18 21:37 Resuscitation Status Routine Resuscitation Status: DNAR: NO Resuscitation Discussed with: patient and ERIKA Reviewed: Yes Vital Signs & Weight: Vital Signs (12 hours) Temp Pulse Pulse Pulse Resp BP BP 10/20/18 09:07 103 H 106 H 95/52 L 115/63 10/20/18 08:00 98.8 F 110 H 17 10/20/18 03:59 99.0 F 99 17 10/20/18 03:39 10/20/18 00:00 99.9 F H 107 H 16 10/19/18 23:53 99.9 F H 100 16 BP Pulse Ox Pulse Ox 10/20/18 09:07 95 10/20/18 08:00 112/59 L 96 10/20/18 03:59 102/55 L 97 10/20/18 03:39 95 10/20/18 00:00 106/56 L 95 10/19/18 23:53 102/50 L 95 Weight Admit Weight 170 lb 6.4 oz Weight 170 lb 14.4 oz I&O: 10/19/18 10/20/18 10/21/18 06:59 06:59 06:59 Intake Total 0 900 Output Total 325 250 Balance -325 650 Result Diagrams: 10/19/18 07:01 10/19/18 07:01 Additional Labs: Accuchecks 10/20/18 10/20/18 10/19/18 11:02 05:15 20:53 POC Glucose 259 H 324 H 303 H 10/19/18 10/19/18 16:53 10:48 POC Glucose 329 H 310 H EKG Reviewed by me: Yes (nsr) Phys Exam - Physical Examination Constitutional: NAD HEENT: PERRLA, moist MMs, sclera anicteric Neck: no JVD, supple Respiratory: no wheezing, no rales, no rhonchi Cardiovascular: RRR, no significant murmur, no rub Gastrointestinal: soft, non-tender, no distention, positive bowel sounds Musculoskeletal: no edema, pulses present Neurological: non-focal, normal sensation Lymphatic: no nodes Psychiatric: normal affect, A&O x 3 Skin: no rash, normal turgor Dx/Plan (1) Bilateral pleural effusion Code(s): J90 - PLEURAL EFFUSION, NOT ELSEWHERE CLASSIFIED Status: Acute (2) Pulmonary embolism Code(s): I26.99 - OTHER PULMONARY EMBOLISM WITHOUT ACUTE COR PULMONALE Status : Acute (3) CAD (coronary artery disease) Code(s): I25.10 - ATHSCL HEART DISEASE OF [place] CORONARY ARTERY W/O ANG PCTRS Status: Chronic Comment: with h/o cabg (4) Cholangiocarcinoma Code(s): C22.1 - INTRAHEPATIC BILE DUCT CARCINOMA Status: Chronic Comment: with metastasis to lung, liver, lymph node and duodenam involvement, pt is following [facility] and he has been on chemotherapy trial (5) Diabetes type 2, controlled Code(s): E11.9 - TYPE 2 DIABETES MELLITUS WITHOUT COMPLICATIONS Status: Chronic (6) Dyslipidemia Code(s): E78.5 - HYPERLIPIDEMIA, UNSPECIFIED Status: Chronic (7) GERD (gastroesophageal reflux disease) Code(s): K21.9 - GASTRO-ESOPHAGEAL REFLUX DISEASE WITHOUT ESOPHAGITIS Status: Chronic (8) Hyponatremia Code(s): E87.1 - HYPO-OSMOLALITY AND HYPONATREMIA Status: Chronic (9) Hypothyroidism Code(s): E03.9 - HYPOTHYROIDISM, UNSPECIFIED Status: Chronic (10) Macrocytic anemia Code(s): D53.9 - NUTRITIONAL ANEMIA, UNSPECIFIED Status: Chronic (11) Splenic infarction Code(s): D73.5 - INFARCTION OF SPLEEN Status: Chronic - Plan cont current plan of care, plan discussed w/ family * consult palliative care * continue lovenox * tomorrow pleurex catheter placement * discussed with * medication reviewed as below * symptomatic treatment. Review of Systems - Review of Systems ENT: negative: Ear Pain, Ear Discharge, Nose Pain, Nose Discharge, Nose Congestion, Mouth Pain, Mouth Swelling, Throat Pain, Throat Swelling, Other Respiratory: negative: Cough, Dry, Shortness of Breath, Hemoptysis, SOB with Excertion, Pleuritic Pain, Sputum, Wheezing Cardiovascular: negative: chest pain, palpitations, orthopnea, paroxysmal nocturnal dyspnea, edema, light headedness, other Gastrointestinal: negative: Nausea, Vomiting, Abdominal Pain, Diarrhea, Constipation, Melena, Hematochezia, Other Genitourinary: negative: Dysuria, Frequency, Incontinence, Hematuria, Retention , Other Musculoskeletal: negative: Neck Pain, Shoulder Pain, Arm Pain, Back Pain, Hand Pain, Leg Pain, Foot Pain, Other - Medications/Allergies Allergies/Adverse Reactions: Allergies Allergy/AdvReac Type Severity Reaction Status Date / Time metformin Allergy Verified 10/10/18 01:18 Medications: Current Medications Acetaminophen (Tylenol) 650 mg PO Q4H PRN PRN Reason: Headache/Fever/Mild Pain (1-3) Last Admin: 10/19/18 16:16 Dose: 650 mg Hydrocodone Bitart/Acetaminophen ([place] 5/325) 1 tab PO Q4H PRN PRN Reason: Moderate Pain (4-6) Alogliptin Benzoate (Alogliptin) 25 mg PO DAILY [facility] Last Admin: 10/20/18 08:13 Dose: 25 mg Artificial Tears (Tears Naturale) 2 drop EA EYE PRN PRN PRN Reason: Dry Eyes Bisacodyl (Dulcolax) 10 mg PO DAILYPRN PRN PRN Reason: Constipation Dextrose/Water (Dextrose 50%) 25 gm SLOW IVP PRN PRN PRN Reason: Hypoglycemia Diphenhydramine HCl (Benadryl) 25 mg PO Q4H PRN PRN Reason: Itching & Hives (mild) Dronabinol (Marinol) 2.5 mg PO BID-AC [facility] Last Admin: 10/20/18 08:14 Dose: 2.5 mg Enoxaparin Sodium (Lovenox) 75 mg SC 0900,2100 [facility] Last Admin: 10/20/18 08:15 Dose: 75 mg Glucagon (Glucagon) 1 mg IM PRN PRN PRN Reason: Hypoglycemia Guaifenesin (Robitussin Sf) 200 mg PO Q4H PRN PRN Reason: Cough Hydralazine HCl (Apresoline) 10 mg SLOW IVP Q4H PRN PRN Reason: SBP > 180 and HR < 70 Dextrose/Water (D5w) 1,000 mls @ 0 mls/hr IV .Q0M PRN PRN Reason: Hypoglycemia Cefazolin Sodium/Dextrose 2 gm (/ Device) 50 mls @ 100 mls/hr IVPB ONCALL-OR DAVON Stop: 10/21/18 07:59 Insulin Human Lispro (Humalog) 0 units SC .MILD SLIDING SCALE PRN PRN Reason: Mild Correctional Scale Last Admin: 10/20/18 05:17 Dose: 5 unit Insulin Human Lispro (Humalog) 0 units SC .BEDTIME SLIDING SC PRN PRN Reason: Bedtime Correctional Scale Last Admin: 10/19/18 21:13 Dose: 4 unit Levothyroxine Sodium (Synthroid) 112 mcg PO 0600 [facility] Last Admin: 10/20/18 05:17 Dose: 112 mcg Levothyroxine Sodium (Synthroid) 25 mcg PO 0600 [facility] Last Admin: 10/20/18 05:17 Dose: 25 mcg Loperamide HCl (Imodium) 2 mg PO PRN PRN PRN Reason: Diarrhea/Loose Stools Loratadine (Claritin) 10 mg PO DAILYPRN PRN PRN Reason: Sinus Symptoms Morphine Sulfate (Morphine) 2 mg SLOW IVP Q4H PRN PRN Reason: Pain Multivitamins (Theragran) 1 tab PO DAILY [facility] Last Admin: 10/20/18 08:13 Dose: 1 tab Ondansetron HCl (Zofran) 4 mg IVP Q6H PRN PRN Reason: Nausea/Vomiting Ondansetron HCl (Zofran Odt) 4 mg PO Q6H PRN PRN Reason: Nausea/Vomiting Pioglitazone HCl (Actos) 30 mg PO DAILY [facility] Last Admin: 10/20/18 08:13 Dose: 30 mg Rosuvastatin Calcium (Crestor) 20 mg PO DAILY [facility] Last Admin: 10/20/18 08:13 Dose: 20 mg Senna/Docusate Sodium (Senokot S) 2 tab PO BID PRN PRN Reason: Constipation Sodium Chloride ([place] Nasal [place] 0.65%) 0 ml EA NARE QIDPRN PRN PRN Reason: Nasal Congestion Sodium Chloride (Flush - Normal Saline) 10 ml IVF Q12HR [facility] Last Admin: 10/20/18 08:14 Dose: 10 ml Sodium Chloride (Flush - Normal Saline) 10 ml IVF PRN PRN PRN Reason: Saline Flush Throat Lozenges (Cepastat Lozenges) 1 glenroy PO Q2H PRN PRN Reason: Sore Throat Zolpidem Tartrate (Ambien) 5 mg PO HSPRN PRN PRN Reason: Insomnia
--- NOTE | 2018-10-20 13:33 | PRG ---
DATE OF SERVICE: 10/20/2018 SUBJECTIVE: The patient is doing well. He has no complaints. OBJECTIVE: VITAL SIGNS: Temperature 98.8, pulse 103, blood pressure 95/52, O2 saturation 95%. HEENT: Unremarkable. NECK: No adenopathy or JVD. LUNGS: Diminished breath sounds in left base compared to right. CARDIAC: S1, S2. Regular. ABDOMEN: Soft. EXTREMITIES: No edema. ASSESSMENT: Metastatic cholangiocarcinoma with left pleural effusion. PLAN: PleurX planned for Sunday. Appreciate Dr. Cuevas's assistance. Job ID: [id number]
[2018-10-20] MEDS: Morphine 4 MG/ML VIAL SLOW IVP PRN (21:01)
[2018-10-21] MEDS: Levothyroxine Sodium 112 MCG TAB PO SCH (05:03)
[2018-10-21] MEDS: Levothyroxine Sodium 25 MCG TAB PO SCH (05:03)
[2018-10-21] MEDS ORDERED: Midazolam HCl 2 mg/2 ml Vial ONE (06:56)
[2018-10-21] MEDS ORDERED: Fentanyl 100 MCG/2 ML VIAL ONE (06:56)
[2018-10-21] MEDS ORDERED: Propofol 500 MG/50 ML VIAL ONE (06:57)
[2018-10-21] MEDS ORDERED: Tetracaine HCl/PF 1% 20 MG/2 ML AMP ONE (06:57)
[2018-10-21] MEDS ORDERED: CEFAZOLIN 2 GM in Premix Bag 1 BAG IVPB SCH (07:30)
[2018-10-21] MEDS ORDERED: PACU-Morphine 4MG/ML VIAL SLOW IVP PRN (08:32)
[2018-10-21] MEDS ORDERED: Promethazine HCl 25 MG/ML VIAL IM PRN (08:32)
[2018-10-21] MEDS ORDERED: Ondansetron HCl/PF 4 MG/2 ML Vial IVP PRN (08:32)
[2018-10-21] MEDS ORDERED: Meperidine HCl/PF 25 MG/ML VIAL SLOW IVP PRN (08:32)
[2018-10-21] MEDS ORDERED: Promethazine HCl 25 MG/ML VIAL SLOW IVP PRN (08:32)
[2018-10-21] MEDS ORDERED: Ketorolac Tromethamine 30 MG/ML VIAL IVP PRN (08:32)
[2018-10-21] MEDS: Dronabinol 2.5 MG CAP PO SCH ×2 (09:04→17:10)
[2018-10-21] MEDS: Enoxaparin Sodium 80 MG/0.8 ML SYRINGE SC SCH ×2 (09:05→20:31)
--- NOTE | 2018-10-21 09:57 | PRG ---
DATE OF SERVICE: 10/21/2018 SUBJECTIVE: He is back from a procedure, chest tube, left-sided with a drainage valve. OBJECTIVE: VITAL SIGNS: Temperature 99, pulse 110, respiratory rate 15, saturations 93% on 2 L, blood pressure 115/63. CHEST: No wheezing, crackles. CARDIAC: Normal S1, S2. no gallops_. ASSESSMENT: 1. Recurrent pleural effusion. Metastatic cholangiocarcinoma, status post chemotherapy at [facility]. 2. Status post pleural catheter inserted on the left side. PLAN: Continue symptomatic care, PT, supportive care. We will follow. Job ID: [id number] MTDD
[2018-10-21] MEDS: Multivit, Therapeutic 1 TAB PO SCH (11:09)
[2018-10-21] MEDS: Alogliptin 25 MG TAB PO SCH (11:09)
[2018-10-21] MEDS: Rosuvastatin 20 MG TAB PO SCH (11:10)
[2018-10-21] MEDS: Pioglitazone HCl 15 MG TAB PO SCH (11:11)
[2018-10-21] MEDS: HumaLOG 300 UNITS/3 ML VIAL SC PRN ×3 (11:12→20:32)
--- NOTE | 2018-10-21 11:52 | PDOC.PN ---
- Subjective Encounter Start Date: 10/21/18 Encounter Start Time: 08:00 Patient seen and examined. No new complaints. No overnight events s/p pleurex catheter placement - Objective Resuscitation Status - Order Detail: 10/18/18 21:37 Resuscitation Status Routine Resuscitation Status: DNAR: NO Resuscitation Discussed with: patient and ERIKA Reviewed: Yes Vital Signs & Weight: Vital Signs (12 hours) Temp Pulse Resp BP Pulse Ox 10/21/18 09:15 97.3 F L 92 17 118/59 L 92 L 10/21/18 04:00 99.0 F 110 H 15 115/63 93 L 10/21/18 03:56 98 Weight Admit Weight 170 lb 6.4 oz Weight 174 lb 8 oz I&O: 10/20/18 10/21/18 10/22/18 06:59 06:59 06:59 Intake Total 900 660 Output Total 250 250 Balance 650 410 Result Diagrams: 10/19/18 07:01 10/19/18 07:01 Additional Labs: Accuchecks 10/21/18 10/21/18 10/20/18 11:07 05:44 20:38 POC Glucose 272 H 290 H 332 H 10/20/18 16:40 POC Glucose 261 H EKG Reviewed by me: Yes Phys Exam - Physical Examination Constitutional: NAD HEENT: PERRLA, moist MMs, sclera anicteric Neck: no JVD, supple Respiratory: no wheezing, no rhonchi reduced air entry both base Cardiovascular: RRR, no significant murmur, no rub Gastrointestinal: soft, non-tender, no distention, positive bowel sounds Musculoskeletal: no edema, pulses present Neurological: non-focal, normal sensation, moves all 4 limbs Lymphatic: no nodes Psychiatric: normal affect, A&O x 3 Skin: no rash, normal turgor Dx/Plan (1) Bilateral pleural effusion Code(s): J90 - PLEURAL EFFUSION, NOT ELSEWHERE CLASSIFIED Status: Acute (2) Pulmonary embolism Code(s): I26.99 - OTHER PULMONARY EMBOLISM WITHOUT ACUTE COR PULMONALE Status : Acute (3) CAD (coronary artery disease) Code(s): I25.10 - ATHSCL HEART DISEASE OF [place] CORONARY ARTERY W/O ANG PCTRS Status: Chronic Comment: with h/o cabg (4) Cholangiocarcinoma Code(s): C22.1 - INTRAHEPATIC BILE DUCT CARCINOMA Status: Chronic Comment: with metastasis to lung, liver, lymph node and duodenam involvement, pt is following [facility] and he has been on chemotherapy trial (5) Diabetes type 2, controlled Code(s): E11.9 - TYPE 2 DIABETES MELLITUS WITHOUT COMPLICATIONS Status: Chronic (6) Dyslipidemia Code(s): E78.5 - HYPERLIPIDEMIA, UNSPECIFIED Status: Chronic (7) GERD (gastroesophageal reflux disease) Code(s): K21.9 - GASTRO-ESOPHAGEAL REFLUX DISEASE WITHOUT ESOPHAGITIS Status: Chronic (8) Hyponatremia Code(s): E87.1 - HYPO-OSMOLALITY AND HYPONATREMIA Status: Chronic (9) Hypothyroidism Code(s): E03.9 - HYPOTHYROIDISM, UNSPECIFIED Status: Chronic (10) Macrocytic anemia Code(s): D53.9 - NUTRITIONAL ANEMIA, UNSPECIFIED Status: Chronic (11) Splenic infarction Code(s): D73.5 - INFARCTION OF SPLEEN Status: Chronic - Plan cont current plan of care, plan discussed w/ family * continue lovenox * on discharge elliquis * pleurex catheter placed and pt's family will be educated about its use * medication reviewed as below * symptomatic treatment * expecting discharge soon * evaluate for home oxygen. Review of Systems - Review of Systems Constitutional: weakness. negative: fever, chills, sweats, malaise, other ENT: negative: Ear Pain, Ear Discharge, Nose Pain, Nose Discharge, Nose Congestion, Mouth Pain, Mouth Swelling, Throat Pain, Throat Swelling, Other Respiratory: SOB with Excertion. negative: Cough, Dry, Shortness of Breath, Hemoptysis, Pleuritic Pain, Sputum, Wheezing Cardiovascular: negative: chest pain, palpitations, orthopnea, paroxysmal nocturnal dyspnea, edema, light headedness, other Gastrointestinal: negative: Nausea, Vomiting, Abdominal Pain, Diarrhea, Constipation, Melena, Hematochezia, Other Genitourinary: negative: Dysuria, Frequency, Incontinence, Hematuria, Retention , Other Musculoskeletal: negative: Neck Pain, Shoulder Pain, Arm Pain, Back Pain, Hand Pain, Leg Pain, Foot Pain, Other Skin: negative: Rash, Lesions, Bryan, Bruising, Other - Medications/Allergies Allergies/Adverse Reactions: Allergies Allergy/AdvReac Type Severity Reaction Status Date / Time metformin Allergy Verified 10/10/18 01:18 Medications: Current Medications Acetaminophen (Tylenol) 650 mg PO Q4H PRN PRN Reason: Headache/Fever/Mild Pain (1-3) Last Admin: 10/19/18 16:16 Dose: 650 mg Hydrocodone Bitart/Acetaminophen ([place] 5/325) 1 tab PO Q4H PRN PRN Reason: Moderate Pain (4-6) Alogliptin Benzoate (Alogliptin) 25 mg PO DAILY [facility] Last Admin: 10/21/18 11:09 Dose: 25 mg Artificial Tears (Tears Naturale) 2 drop EA EYE PRN PRN PRN Reason: Dry Eyes Bisacodyl (Dulcolax) 10 mg PO DAILYPRN PRN PRN Reason: Constipation Dextrose/Water (Dextrose 50%) 25 gm SLOW IVP PRN PRN PRN Reason: Hypoglycemia Diphenhydramine HCl (Benadryl) 25 mg PO Q4H PRN PRN Reason: Itching & Hives (mild) Dronabinol (Marinol) 2.5 mg PO BID-AC [facility] Last Admin: 10/21/18 09:04 Dose: Not Given Enoxaparin Sodium (Lovenox) 75 mg SC 0900,2100 [facility] Last Admin: 10/21/18 09:05 Dose: Not Given Glucagon (Glucagon) 1 mg IM PRN PRN PRN Reason: Hypoglycemia Guaifenesin (Robitussin Sf) 200 mg PO Q4H PRN PRN Reason: Cough Hydralazine HCl (Apresoline) 10 mg SLOW IVP Q4H PRN PRN Reason: SBP > 180 and HR < 70 Dextrose/Water (D5w) 1,000 mls @ 0 mls/hr IV .Q0M PRN PRN Reason: Hypoglycemia Insulin Human Lispro (Humalog) 0 units SC .MILD SLIDING SCALE PRN PRN Reason: Mild Correctional Scale Last Admin: 10/21/18 11:12 Dose: 4 unit Insulin Human Lispro (Humalog) 0 units SC .BEDTIME SLIDING SC PRN PRN Reason: Bedtime Correctional Scale Last Admin: 10/20/18 20:49 Dose: 4 unit Levothyroxine Sodium (Synthroid) 112 mcg PO 0600 [facility] Last Admin: 10/21/18 05:03 Dose: Not Given Levothyroxine Sodium (Synthroid) 25 mcg PO 0600 [facility] Last Admin: 10/21/18 05:03 Dose: Not Given Loperamide HCl (Imodium) 2 mg PO PRN PRN PRN Reason: Diarrhea/Loose Stools Loratadine (Claritin) 10 mg PO DAILYPRN PRN PRN Reason: Sinus Symptoms Morphine Sulfate (Morphine) 2 mg SLOW IVP Q4H PRN PRN Reason: Pain Last Admin: 10/20/18 21:01 Dose: 2 mg Multivitamins (Theragran) 1 tab PO DAILY [facility] Last Admin: 10/21/18 11:09 Dose: 1 tab Ondansetron HCl (Zofran) 4 mg IVP Q6H PRN PRN Reason: Nausea/Vomiting Ondansetron HCl (Zofran Odt) 4 mg PO Q6H PRN PRN Reason: Nausea/Vomiting Last Admin: 10/20/18 20:49 Dose: 4 mg Pioglitazone HCl (Actos) 30 mg PO DAILY [facility] Last Admin: 10/21/18 11:11 Dose: 30 mg Rosuvastatin Calcium (Crestor) 20 mg PO DAILY [facility] Last Admin: 10/21/18 11:10 Dose: 20 mg Senna/Docusate Sodium (Senokot S) 2 tab PO BID PRN PRN Reason: Constipation Sodium Chloride ([place] Nasal [place] 0.65%) 0 ml EA NARE QIDPRN PRN PRN Reason: Nasal Congestion Sodium Chloride (Flush - Normal Saline) 10 ml IVF Q12HR [facility] Last Admin: 10/21/18 11:12 Dose: 10 ml Sodium Chloride (Flush - Normal Saline) 10 ml IVF PRN PRN PRN Reason: Saline Flush Throat Lozenges (Cepastat Lozenges) 1 glenroy PO Q2H PRN PRN Reason: Sore Throat Zolpidem Tartrate (Ambien) 5 mg PO HSPRN PRN PRN Reason: Insomnia
[2018-10-21] MEDS ORDERED: PROPOFOL 200 MG/20 ML VIAL ONE (12:03)
[2018-10-21] MEDS ORDERED: Ondansetron PF 4 MG/2 ML Vial ONE (12:03)
--- NOTE | 2018-10-21 14:55 | OP ---
DATE OF PROCEDURE: 10/21/2018 PREOPERATIVE DIAGNOSIS: Recurrent left malignant pleural effusion. POSTOPERATIVE DIAGNOSIS: Recurrent left malignant pleural effusion. PROCEDURE: Left PleurX catheter placement. ANESTHESIA: 1% lidocaine for local with IV sedation. DESCRIPTION OF PROCEDURE: After consent was obtained, the patient was brought to the operating room and placed in the supine position on the operating room table. Appropriate central line was placed. IV sedation was begun. The left chest wall was prepped and draped in the usual sterile fashion. Skin and subcutaneous tissues were anesthetized with 1% lidocaine. Percutaneous access to the oral cavity was obtained and a guidewire passed. The catheter was tunneled from the midclavicular line around our guidewire access port. The guidewire was used to dilate the tract and catheter passed through the peel-away dilator, which was then removed. Catheter was used for drainage and 1500 mL of bloody fluid was drained. The patient tolerated the procedure well and was transferred to the recovery area and will be sent home per his primary service. Job ID: [id number]
[2018-10-21] MEDS: Morphine 4 MG/ML VIAL SLOW IVP PRN (20:31)
[2018-10-22] MEDS: Levothyroxine Sodium 112 MCG TAB PO SCH (05:51)
[2018-10-22] MEDS: Levothyroxine Sodium 25 MCG TAB PO SCH (05:52)
--- NOTE | 2018-10-22 09:14 | PRG ---
DATE OF SERVICE: 10/22/2018 SUBJECTIVE: This morning, the patient is doing better. He is less short of breath. He had a pleural catheter inserted yesterday. OBJECTIVE: VITAL SIGNS: His sats are 96% on 3 L, pulse 104, temperature 99, blood pressure 111/58. CHEST: Decreased breath sounds bilateral without any wheezing. CARDIAC: Normal S1 and S2. No gallops. ABDOMEN: No masses. IMPRESSION: Recurrent left pleural effusion, metastatic gallbladder cancer. PLAN: He can be discharged to home today. Follow up with his oncologist at [facility] in [place]. Job ID: [id number]
[2018-10-22] MEDS: Alogliptin 25 MG TAB PO SCH (09:18)
[2018-10-22] MEDS: Rosuvastatin 20 MG TAB PO SCH (09:18)
[2018-10-22] MEDS: Multivit, Therapeutic 1 TAB PO SCH (09:18)
[2018-10-22] MEDS: Pioglitazone HCl 15 MG TAB PO SCH (09:19)
[2018-10-22] MEDS: Acetaminophen 325 MG TAB PO PRN (09:26)
[2018-10-22] MEDS: Dronabinol 2.5 MG CAP PO SCH ×2 (09:41→16:56)
[2018-10-22] MEDS: Enoxaparin Sodium 80 MG/0.8 ML SYRINGE SC SCH (10:15)
--- NOTE | 2018-10-22 10:17 | PDOC.PN ---
- Subjective Encounter Start Date: 10/22/18 Encounter Start Time: 07:50 Patient seen and examined. No new complaints. No overnight events - Objective Resuscitation Status - Order Detail: 10/18/18 21:37 Resuscitation Status Routine Resuscitation Status: DNAR: NO Resuscitation Discussed with: patient and ERIKA Reviewed: Yes Vital Signs & Weight: Vital Signs (12 hours) Temp Pulse Resp BP Pulse Ox 10/22/18 07:40 99.3 F 104 H 18 111/58 L 96 10/22/18 04:00 99.4 F 108 H 18 101/55 L 94 L Weight Admit Weight 170 lb 6.4 oz Weight 174 lb 8 oz I&O: 10/21/18 10/22/18 10/23/18 06:59 06:59 06:59 Intake Total 660 1180 Output Total 250 200 Balance 410 980 Result Diagrams: 10/19/18 07:01 10/19/18 07:01 Additional Labs: Accuchecks 10/22/18 10/21/18 10/21/18 05:44 20:10 16:53 POC Glucose 260 H 280 H 304 H 10/21/18 11:07 POC Glucose 272 H EKG Reviewed by me: Yes Phys Exam - Physical Examination Constitutional: NAD HEENT: PERRLA, moist MMs, sclera anicteric Neck: no JVD, supple Respiratory: no wheezing, no rales, no rhonchi Cardiovascular: RRR, no significant murmur, no rub Gastrointestinal: soft, non-tender, no distention, positive bowel sounds Musculoskeletal: no edema, pulses present Neurological: non-focal, normal sensation, moves all 4 limbs Lymphatic: no nodes Psychiatric: normal affect, A&O x 3 Skin: no rash, normal turgor Dx/Plan (1) Bilateral pleural effusion Code(s): J90 - PLEURAL EFFUSION, NOT ELSEWHERE CLASSIFIED Status: Acute (2) Pulmonary embolism Code(s): I26.99 - OTHER PULMONARY EMBOLISM WITHOUT ACUTE COR PULMONALE Status : Acute (3) CAD (coronary artery disease) Code(s): I25.10 - ATHSCL HEART DISEASE OF [place] CORONARY ARTERY W/O ANG PCTRS Status: Chronic Comment: with h/o cabg (4) Cholangiocarcinoma Code(s): C22.1 - INTRAHEPATIC BILE DUCT CARCINOMA Status: Chronic Comment: with metastasis to lung, liver, lymph node and duodenam involvement, pt is following [facility] and he has been on chemotherapy trial (5) Diabetes type 2, controlled Code(s): E11.9 - TYPE 2 DIABETES MELLITUS WITHOUT COMPLICATIONS Status: Chronic (6) Dyslipidemia Code(s): E78.5 - HYPERLIPIDEMIA, UNSPECIFIED Status: Chronic (7) GERD (gastroesophageal reflux disease) Code(s): K21.9 - GASTRO-ESOPHAGEAL REFLUX DISEASE WITHOUT ESOPHAGITIS Status: Chronic (8) Hyponatremia Code(s): E87.1 - HYPO-OSMOLALITY AND HYPONATREMIA Status: Chronic (9) Hypothyroidism Code(s): E03.9 - HYPOTHYROIDISM, UNSPECIFIED Status: Chronic (10) Macrocytic anemia Code(s): D53.9 - NUTRITIONAL ANEMIA, UNSPECIFIED Status: Chronic (11) Splenic infarction Code(s): D73.5 - INFARCTION OF SPLEEN Status: Chronic - Plan cont current plan of care, plan discussed w/ family * continue lovenox * home oxygen arrangement * elliquis on discharge * medication reviewed as below * symptomatic treatment. Review of Systems - Review of Systems ENT: negative: Ear Pain, Ear Discharge, Nose Pain, Nose Discharge, Nose Congestion, Mouth Pain, Mouth Swelling, Throat Pain, Throat Swelling, Other Respiratory: negative: Cough, Dry, Shortness of Breath, Hemoptysis, SOB with Excertion, Pleuritic Pain, Sputum, Wheezing Cardiovascular: negative: chest pain, palpitations, orthopnea, paroxysmal nocturnal dyspnea, edema, light headedness, other Gastrointestinal: negative: Nausea, Vomiting, Abdominal Pain, Diarrhea, Constipation, Melena, Hematochezia, Other Genitourinary: negative: Dysuria, Frequency, Incontinence, Hematuria, Retention , Other Musculoskeletal: negative: Neck Pain, Shoulder Pain, Arm Pain, Back Pain, Hand Pain, Leg Pain, Foot Pain, Other Skin: negative: Rash, Lesions, Bryan, Bruising, Other - Medications/Allergies Allergies/Adverse Reactions: Allergies Allergy/AdvReac Type Severity Reaction Status Date / Time metformin Allergy Verified 10/10/18 01:18 Medications: Current Medications Acetaminophen (Tylenol) 650 mg PO Q4H PRN PRN Reason: Headache/Fever/Mild Pain (1-3) Last Admin: 10/22/18 09:26 Dose: 650 mg Hydrocodone Bitart/Acetaminophen ([place] 5/325) 1 tab PO Q4H PRN PRN Reason: Moderate Pain (4-6) Last Admin: 10/21/18 19:00 Dose: 1 tab Alogliptin Benzoate (Alogliptin) 25 mg PO DAILY [facility] Last Admin: 10/22/18 09:18 Dose: 25 mg Apixaban (Eliquis) 5 mg PO BID [facility] Artificial Tears (Tears Naturale) 2 drop EA EYE PRN PRN PRN Reason: Dry Eyes Bisacodyl (Dulcolax) 10 mg PO DAILYPRN PRN PRN Reason: Constipation Last Admin: 10/22/18 09:18 Dose: 10 mg Dextrose/Water (Dextrose 50%) 25 gm SLOW IVP PRN PRN PRN Reason: Hypoglycemia Diphenhydramine HCl (Benadryl) 25 mg PO Q4H PRN PRN Reason: Itching & Hives (mild) Dronabinol (Marinol) 2.5 mg PO BID-[facility] Last Admin: 10/22/18 09:41 Dose: 2.5 mg Glucagon (Glucagon) 1 mg IM PRN PRN PRN Reason: Hypoglycemia Guaifenesin (Robitussin Sf) 200 mg PO Q4H PRN PRN Reason: Cough Hydralazine HCl (Apresoline) 10 mg SLOW IVP Q4H PRN PRN Reason: SBP > 180 and HR < 70 Dextrose/Water (D5w) 1,000 mls @ 0 mls/hr IV .Q0M PRN PRN Reason: Hypoglycemia Insulin Human Lispro (Humalog) 0 units SC .MILD SLIDING SCALE PRN PRN Reason: Mild Correctional Scale Last Admin: 10/21/18 17:10 Dose: 5 unit Insulin Human Lispro (Humalog) 0 units SC .BEDTIME SLIDING SC PRN PRN Reason: Bedtime Correctional Scale Last Admin: 10/21/18 20:32 Dose: 3 unit Levothyroxine Sodium (Synthroid) 112 mcg PO 0600 [facility] Last Admin: 10/22/18 05:51 Dose: 112 mcg Levothyroxine Sodium (Synthroid) 25 mcg PO 0600 [facility] Last Admin: 10/22/18 05:52 Dose: 25 mcg Loperamide HCl (Imodium) 2 mg PO PRN PRN PRN Reason: Diarrhea/Loose Stools Loratadine (Claritin) 10 mg PO DAILYPRN PRN PRN Reason: Sinus Symptoms Morphine Sulfate (Morphine) 2 mg SLOW IVP Q4H PRN PRN Reason: Pain Last Admin: 10/21/18 20:31 Dose: 2 mg Multivitamins (Theragran) 1 tab PO DAILY [facility] Last Admin: 10/22/18 09:18 Dose: 1 tab Ondansetron HCl (Zofran) 4 mg IVP Q6H PRN PRN Reason: Nausea/Vomiting Ondansetron HCl (Zofran Odt) 4 mg PO Q6H PRN PRN Reason: Nausea/Vomiting Last Admin: 10/20/18 20:49 Dose: 4 mg Pioglitazone HCl (Actos) 30 mg PO DAILY [facility] Last Admin: 10/22/18 09:19 Dose: 30 mg Rosuvastatin Calcium (Crestor) 20 mg PO DAILY [facility] Last Admin: 10/22/18 09:18 Dose: 20 mg Senna/Docusate Sodium (Senokot S) 2 tab PO BID PRN PRN Reason: Constipation Sodium Chloride ([place] Nasal [place] 0.65%) 0 ml EA NARE QIDPRN PRN PRN Reason: Nasal Congestion Sodium Chloride (Flush - Normal Saline) 10 ml IVF Q12HR [facility] Last Admin: 10/22/18 09:19 Dose: 10 ml Sodium Chloride (Flush - Normal Saline) 10 ml IVF PRN PRN PRN Reason: Saline Flush Throat Lozenges (Cepastat Lozenges) 1 glenroy PO Q2H PRN PRN Reason: Sore Throat Zolpidem Tartrate (Ambien) 5 mg PO HSPRN PRN PRN Reason: Insomnia
[2018-10-22] MEDS: HumaLOG 300 UNITS/3 ML VIAL SC PRN (10:53)
--- NOTE | 2018-10-22 12:39 | DIS ---
DATE OF ADMISSION: 10/18/2018 DATE OF DISCHARGE: 10/22/2018 PRIMARY CARE PHYSICIAN: Dr. Saurav Diego. DISCHARGE DISPOSITION: Home. PRIMARY DISCHARGE DIAGNOSES: Bilateral pleural effusion due to malignant pleural effusion, pulmonary embolism, and acute respiratory failure with hypoxia requiring home oxygen. SECONDARY DISCHARGE DIAGNOSES: Macrocytic anemia, hypothyroidism, chronic hyponatremia, history of splenic infarction, gastroesophageal reflux disease, metastatic cholangiocarcinoma, diabetes type 2, dyslipidemia, and coronary artery disease. PRIMARY PROCEDURE/OPERATION: PleurX catheter placement. RADIOLOGICAL INVESTIGATION: CT angiography positive for PE. Chest x-ray showed bilateral pleural effusion. SIGNIFICANT LABORATORY DATA: Hemoglobin 10.0 and MCV 100. Creatinine 0.76, sodium 134, and lipase 258. Cardiac enzyme negative. DISCHARGE MEDICATIONS: 1. Tylenol No. 3 one tablet q.6 hourly p.r.n. 2. Levothyroxine 137 mcg p.o. daily. 3. Multivitamin one tablet p.o. daily. 4. Nitroglycerin 0.4 mg sublingual p.r.n. 5. Omeprazole 40 mg p.o. b.i.d. 6. Actos 30 mg daily. 7. Crestor 20 mg daily. 8. Januvia 100 mg p.o. daily. 9. Eliquis 10 mg p.o. b.i.d. till October 27, 2018 and subsequently, 5 mg p.o. b.i.d. 10. Ecotrin 81 mg p.o. daily. CONTRAINDICATION: None. CODE STATUS: DNR. INPATIENT SCHOOL STANDARDS COACH: Dr. Ng and group was following while in hospital. Dr. Nolan Cuevas was consulted for PleurX catheter placement. TEST RESULTS PENDING ON DISCHARGE: None. ALLERGIES: METFORMIN. DISCHARGE PLAN: Posthospital, the patient will follow up with primary care physician, primary oncologist, and MD Spear. HOSPITAL COURSE: A 68-year-old male, who was admitted by Dr. Zaragoza, please see his H and P for further details. The patient was admitted for increasing shortness of breath and generalized weakness. He was diagnosed with pulmonary embolism as well as malignant pleural effusion. He was treated with Lovenox while in hospital. On discharge, we changed to Eliquis therapy for his recurrent pleural effusion, which was related with malignancy. We consulted cardiovascular surgeon for PleurX catheter placement. The patient and family member were given necessary patient education about how to use PleurX catheter. While in hospital, we continued all his home medication as well as on discharge. On discharge, we changed the Aggrenox to Ecotrin and Eliquis is prescribed for chronic anticoagulation. Risk and benefit of chronic anticoagulation discussed with the patient and they agreed to proceed. I have seen and examined the patient at bedside today. Please see my progress note from today for further detail. Pulmonary cleared him for discharge. The patient was requiring home oxygen because his oxygen saturation is 84%. This could be related with congestive heart failure with also malignant pleural effusion. With help of returned case inspector, we arranged home oxygen before discharge and he will get continuous refill from primary care physician. The patient's prognosis is very poor and that is why Palliative Care was also consulted and primary care physician will consider hospice as an outpatient basis if needed. At this point, the patient pursue to continue chemotherapy, which is prescribed by oncologist. Overall, this patient is medically stable for discharge today. He has had high risk for recurrent admission. Job ID: [id number]
[2018-10-22 17:14] VITALS: BP 93/55; TEMP 98.8
[2018-10-22] MEDS ORDERED: Apixaban 5 MG TAB PO SCH (21:00)
== END 2018-10-22 18:20 | disposition home or self-care (01) | DRG 180 ==
LOC: ERS 16:54 → 2NO 21:58
PROVIDERS: ADMIT Family Medicine; ATTEND Family Medicine
PROC: 0W9B30Z Drainage of Left Pleural Cavity with Drainage Device, Percutaneous Approach (ICD-10-PCS; principal; 2018-10-21)
DX: C78.00 Secondary malignant neoplasm of unspecified lung (principal); I26.99 Other pulmonary embolism without acute cor pulmonale; J96.01 Acute respiratory failure with hypoxia; C22.1 Intrahepatic bile duct carcinoma; J91.0 Malignant pleural effusion; C77.9 Secondary and unspecified malignant neoplasm of lymph node, unspecified; C78.7 Secondary malignant neoplasm of liver and intrahepatic bile duct; C78.4 Secondary malignant neoplasm of small intestine; Z66 Do not resuscitate; E11.9 Type 2 diabetes mellitus without complications; E78.5 Hyperlipidemia, unspecified; I25.10 Atherosclerotic heart disease of native coronary artery without angina pectoris; I10 Essential (primary) hypertension; K21.9 Gastro-esophageal reflux disease without esophagitis; E03.9 Hypothyroidism, unspecified; D73.5 Infarction of spleen; D63.0 Anemia in neoplastic disease; Z95.1 Presence of aortocoronary bypass graft; Z79.84 Long term (current) use of oral hypoglycemic drugs; Z88.8 Allergy status to other drugs, medicaments and biological substances; Z79.899 Other long term (current) drug therapy; I11.0 Hypertensive heart disease with heart failure; I50.9 Heart failure, unspecified
CPT/HCPCS: 36415; 36416; 71045; 71275; 80048; 80053; 83690; 83880; 84484; 85025; 93005; 94760; 96372; C1729; J0131; J0690; J1642; J1650; J2250; J2270; J2405; J2704; J3010; Q0162; Q0167